=== PATIENT | female | born 1975 | race Caucasian/White ===

== ENCOUNTER 2020-07-20 10:20 | Emergency (ER) | payer OTHER ==
[~2020-07-20] VITALS: Ht 160 cm; Wt 122.5 kg
[2020-07-20 11:04] LABS: Basophils # (auto) 0 10 ^3/uL (0-0.2); Basophils % (auto) 0.5 % (0.0-2.0); Eosinophils # (auto) 0.1 10 ^3/uL (0-0.8); Eosinophils % (auto) 1.9 % (0.0-7.0); Monocytes # (auto) 0.6 10 ^3/uL (0-1.3); Neutrophils # (auto) 4.4 10 ^3/uL (1.6-8.6); White Blood Cell 6.2 10^3/uL (4.4-10.8)
[2020-07-20 11:06] LABS: Hemoglobin 9.4 g/dL (12.2-16.2); Lymphocytes % (auto) 16.4 % (10.0-50.0); Mean Corpuscular Hemoglobin 23.5 pg (28.0-32.0); Mean Corpuscular Hgb Conc. 30.4 g/dL (32.0-36.0); Mean Corpuscular Volume 77.2 fL (80.0-100.0); Monocytes % (auto) 9.7 % (0.0-12.0); Neutrophils % (auto) 71.5 % (37.0-80.0); Nucleated Red Blood Cells % 0.1 %; Platelet Count (auto) 269 10^3/uL (140-450); Red Blood Cells 4.02 10^6/uL (4.0-5.20); Red Cell Distribution Width 18.5 % (11.8-14.3)
[2020-07-20 11:27] LABS: Urine Bacteria NONE SEEN /hpf (None Seen); Urine Blood Negative /uL (Negative); Urine Mucus FEW (None Seen); Urine Specific Gravity 1.031 (1.001-1.035); Urine WBC 7 /hpf (0 - 5)
[2020-07-20 11:27] LABS: Albumin 3.7 g/dL (3.4-5.0); Calcium 8.4 mg/dL (8.5-10.1); Potassium 3.7 mmol/L (3.5-5.1)
[2020-07-20 11:30] LABS: BUN/Creatinine Ratio 12.3; Bilirubin, Total 0.5 mg/dL (0.2-1.0); Total Protein 7.6 g/dL (6.4-8.2)
[2020-07-20 13:50] VITALS: BP 146/69
== END 2020-07-20 13:53 | disposition home or self-care (01) ==
LOC: ER 10:20
DX: N39.0 Urinary tract infection, site not specified (principal)
CPT/HCPCS: 36415; 74176; 80053; 81001; 83690; 85025; 93005

== ENCOUNTER 2021-04-13 14:09 | Inpatient (IN) | payer OTHER ==
[~2021-04-13] VITALS: Ht 160 cm; Wt 126.0 kg
[2021-04-13] MEDS ORDERED: AZITHROMYCIN 500MG/ 250ML 250 ML IV ONE (14:30)
[2021-04-13] MEDS ORDERED: methylPREDNISolone SOD SUCC 125 MG/2 ML VL IV ONE (14:30)
[2021-04-13] MEDS ORDERED: ZINC SULFATE 220mg CAP or TAB PO ONE (14:30)
[2021-04-13] MEDS ORDERED: CHOLECALCIFEROL (VITD3) 2,000 UNIT CAP/TAB PO ONE (14:30)
[2021-04-13] MEDS ORDERED: ASCORBIC ACID 500 MG TAB PO ONE (14:30)
[2021-04-13 14:39] LABS: Basophils # (auto) 0 10 ^3/uL (0-0.2); Eosinophils # (auto) 0 10 ^3/uL (0-0.8); Lymphocytes # (auto) 0.6 10 ^3/uL (0.4-5.4); Monocytes # (auto) 0.2 10 ^3/uL (0-1.3); Neutrophils # (auto) 3.7 10 ^3/uL (1.6-8.6); Nucleated Red Blood Cells % 0.1 %; White Blood Cell 4.5 10^3/uL (4.4-10.8)
[2021-04-13 14:40] LABS: Basophils % (auto) 0.7 % (0.0-2.0); Eosinophils % (auto) 0.1 % (0.0-7.0); Hematocrit 26.5 % (36.0-46.0); Hemoglobin 8.7 g/dL (12.2-16.2); Mean Corpuscular Hemoglobin 22.5 pg (28.0-32.0); Mean Corpuscular Hgb Conc. 32.9 g/dL (32.0-36.0); Mean Corpuscular Volume 68.4 fL (80.0-100.0); Monocytes % (auto) 3.7 % (0.0-12.0); Neutrophils % (auto) 81.5 % (37.0-80.0); Red Blood Cells 3.87 10^6/uL (4.0-5.20); Red Cell Distribution Width 18.5 % (11.8-14.3)
[2021-04-13 15:01] LABS: Albumin 2.6 g/dL (3.4-5.0); Anion Gap 6 (5-15); Calcium 7.6 mg/dL (8.5-10.1); Carbon Dioxide 26 mmol/L (21-32); Chloride 104 mmol/L (98-107); Glucose 97 mg/dL (74-106); Potassium 3.5 mmol/L (3.5-5.1); Sodium 136 mmol/L (136-145)
[2021-04-13 15:07] LABS: Alanine Aminotransferase 39 U/L (13-56); Alkaline Phosphatase 206 U/L (45-117); Aspartate Aminotransferase 51 U/L (15-37); Bilirubin, Total 0.3 mg/dL (0.2-1.0); GFR African American 154 mL/min; GFR Non-African American 127 mL/min
[2021-04-13 16:04] LABS: BUN/Creatinine Ratio 9.1; Blood Urea Nitrogen 5 mg/dL (7-18)
[2021-04-13] MEDS ORDERED: ALUM & MAG HYDROX-SIMETH LIQ(MAALOX) 30 ML PO ONE (16:15)
[2021-04-13 17:24] LABS: Urine Bacteria FEW /hpf (None Seen); Urine Blood Negative /uL (Negative); Urine Specific Gravity 1.009 (1.001-1.035); Urine WBC 1 /hpf (0 - 5)
[2021-04-13] MEDS ORDERED: NITROGLYCERIN 0.4 MG SL TAB SL PRN (19:15)
[2021-04-13] MEDS ORDERED: MORPHINE SULFATE INJECTION 2 MG/ML SYRG IV PRN ×2 (19:15)
[2021-04-13] MEDS ORDERED: REMDESIVIR PER PHARMACY 0 ML IV SCH (19:15)
[2021-04-13 19:38] VITALS: BP 106/64
[2021-04-13] MEDS ORDERED: FUROSEMIDE 20 MG/2 ML VIAL IV ONE (19:45)
[2021-04-13] MEDS: cefTRIAXone 1GM/50ML D5W 50 ML IV SCH (21:14)
[2021-04-13] MEDS: ENOXAPARIN SOD 40 MG/0.4 ML SYRINGE SC SCH (21:15)
[2021-04-13] MEDS: ACETAMINOPHEN 500 MG TAB PO PRN (21:15)
[2021-04-13] MEDS: BUDESONIDE (INHALATION) 180 MCG IH IN SCH (22:00)
[2021-04-13] MEDS ORDERED: TOCILIZUMAB 400 MG in SODIUM CHL 0.9% 80 ML IV ONE (22:00)
[2021-04-13] MEDS: ALBUTEROL SULF HFA 90MCG INH 200DOSE IN PRN (22:33)
[2021-04-13] MEDS ORDERED: REMDESIVIR 200 MG in NS 210ml LOADING DOSE ADULT IV ONE (23:00)
[2021-04-14] MEDS: ZOLPIDEM TARTRATE 5 MG TAB PO PRN (00:07)
[2021-04-14 05:49] LABS: Basophils # (auto) 0 10 ^3/uL (0-0.2); Eosinophils # (auto) 0 10 ^3/uL (0-0.8); Hemoglobin 8.9 g/dL (12.2-16.2); Lymphocytes # (auto) 0.4 10 ^3/uL (0.4-5.4); Monocytes # (auto) 0.1 10 ^3/uL (0-1.3); Nucleated Red Blood Cells % 0.1 %; White Blood Cell 3.6 10^3/uL (4.4-10.8)
[2021-04-14 05:52] LABS: Basophils % (auto) 0.3 % (0.0-2.0); Hematocrit 27.7 % (36.0-46.0); Lymphocytes % (auto) 11.2 % (10.0-50.0); Mean Corpuscular Hgb Conc. 32.2 g/dL (32.0-36.0); Mean Corpuscular Volume 68.2 fL (80.0-100.0); Monocytes % (auto) 3.6 % (0.0-12.0); Neutrophils % (auto) 84.9 % (37.0-80.0); Red Blood Cells 4.05 10^6/uL (4.0-5.20); Red Cell Distribution Width 18.7 % (11.8-14.3)
[2021-04-14 06:09] LABS: Albumin 2.7 g/dL (3.4-5.0); Calcium 7.7 mg/dL (8.5-10.1); Potassium 3.9 mmol/L (3.5-5.1)
[2021-04-14 06:13] LABS: BUN/Creatinine Ratio 8.6; Bilirubin, Total 0.2 mg/dL (0.2-1.0); Total Protein 7.6 g/dL (6.4-8.2)
[2021-04-14] MEDS: BUDESONIDE (INHALATION) 180 MCG IH IN SCH ×2 (07:02→19:05)
[2021-04-14] MEDS: ALBUTEROL SULF HFA 90MCG INH 200DOSE IN PRN ×2 (07:02→19:05)
[2021-04-14] MEDS: PANTOPRAZOLE 40 MG TAB PO SCH (10:00)
[2021-04-14] MEDS: ZINC SULFATE 220mg CAP or TAB PO SCH (10:00)
[2021-04-14] MEDS ORDERED: TOCILIZUMAB 400 MG in SODIUM CHL 0.9% 80 ML IV ONE (10:00)
[2021-04-14] MEDS: DexAMETHasone SOD PHOS 10MG/1ML VIAL INJ IV SCH (10:00)
[2021-04-14] MEDS: CHOLECALCIFEROL (VITD3) 2,000 UNIT CAP/TAB PO SCH (10:01)
[2021-04-14] MEDS: ASCORBIC ACID 1,000 MG TAB PO SCH (10:01)
[2021-04-14] MEDS: IVERMECTIN 3 MG TAB PO SCH (10:01)
[2021-04-14] MEDS: ENOXAPARIN SOD 40 MG/0.4 ML SYRINGE SC SCH ×2 (10:02→22:50)
[2021-04-14] MEDS: ONDANSETRON HCL 4 MG/2 ML VIAL IV PRN ×2 (10:03→21:00)
[2021-04-14] MEDS: ACETAMINOPHEN 500 MG TAB PO PRN (10:03)
[2021-04-14 13:03] LABS: % Iron Saturation 4.6 % (15-50)
[2021-04-14] MEDS: REMDESIVIR 100mg 100 MG in SODIUM CHL 0.9% 230 ML IV SCH (16:21)
[2021-04-14] MEDS: FERROUS SULFATE 325mg EC TAB PO SCH (18:24)
[2021-04-14] MEDS: cefTRIAXone 1GM/50ML D5W 50 ML IV SCH (21:30)
[2021-04-14] MEDS ORDERED: AZITHROMYCIN 500MG/ 250ML 250 ML IV SCH (22:00)
[2021-04-15] MEDS: ZOLPIDEM TARTRATE 5 MG TAB PO PRN ×2 (00:35→22:32)
[2021-04-15] MEDS: LORazepam 2MG/ML-1ML VIAL IV PRN ×2 (02:26→12:37)
[2021-04-15] MEDS: BUDESONIDE (INHALATION) 180 MCG IH IN SCH ×2 (06:20→22:00)
[2021-04-15] MEDS: FERROUS SULFATE 325mg EC TAB PO SCH ×3 (07:46→18:20)
[2021-04-15] MEDS: DexAMETHasone SOD PHOS 10MG/1ML VIAL INJ IV SCH (08:13)
[2021-04-15] MEDS: ZINC SULFATE 220mg CAP or TAB PO SCH (08:13)
[2021-04-15] MEDS: POTASSIUM CHL 20 Meq TABLET PO SCH (08:13)
[2021-04-15] MEDS: PANTOPRAZOLE 40 MG TAB PO SCH (08:14)
[2021-04-15] MEDS: ASCORBIC ACID 1,000 MG TAB PO SCH (08:15)
[2021-04-15] MEDS: CHOLECALCIFEROL (VITD3) 2,000 UNIT CAP/TAB PO SCH (08:15)
[2021-04-15] MEDS: IVERMECTIN 3 MG TAB PO SCH (08:15)
[2021-04-15] MEDS: ENOXAPARIN SOD 40 MG/0.4 ML SYRINGE SC SCH ×2 (08:16→22:32)
[2021-04-15] MEDS: FUROSEMIDE 40 MG TAB PO SCH (08:17)
[2021-04-15] MEDS: REMDESIVIR 100mg 100 MG in SODIUM CHL 0.9% 230 ML IV SCH (15:17)
[2021-04-15] MEDS: ONDANSETRON HCL 4 MG/2 ML VIAL IV PRN (17:10)
[2021-04-15] MEDS: cefTRIAXone 1GM/50ML D5W 50 ML IV SCH ×2 (20:53→21:30)
[2021-04-15] MEDS: AZITHROMYCIN 250 MG TAB PO SCH (22:32)
[2021-04-16 05:30] LABS: Basophils # (auto) 0 10 ^3/uL (0-0.2); Eosinophils # (auto) 0 10 ^3/uL (0-0.8); Lymphocytes # (auto) 0.7 10 ^3/uL (0.4-5.4); Monocytes # (auto) 0.5 10 ^3/uL (0-1.3); Red Blood Cells 4.03 10^6/uL (4.0-5.20)
[2021-04-16 05:32] LABS: Basophils % (auto) 0.1 % (0.0-2.0); Hematocrit 27.8 % (36.0-46.0); Hemoglobin 8.7 g/dL (12.2-16.2); Lymphocytes % (auto) 8.7 % (10.0-50.0); Mean Corpuscular Hemoglobin 21.7 pg (28.0-32.0); Mean Corpuscular Hgb Conc. 31.4 g/dL (32.0-36.0); Monocytes % (auto) 5.7 % (0.0-12.0); Neutrophils # (auto) 7.3 10 ^3/uL (1.6-8.6); Neutrophils % (auto) 85.5 % (37.0-80.0); Nucleated Red Blood Cells % 0.3 %; Red Cell Distribution Width 18.4 % (11.8-14.3); White Blood Cell 8.5 10^3/uL (4.4-10.8)
[2021-04-16 06:02] LABS: BUN/Creatinine Ratio 22.4; Calcium 7.4 mg/dL (8.5-10.1); Potassium 3.6 mmol/L (3.5-5.1)
[2021-04-16] MEDS: BUDESONIDE (INHALATION) 180 MCG IH IN SCH ×2 (07:43→19:43)
[2021-04-16] MEDS: FERROUS SULFATE 325mg EC TAB PO SCH ×3 (07:53→18:50)
[2021-04-16] MEDS: DexAMETHasone SOD PHOS 10MG/1ML VIAL INJ IV SCH (11:12)
[2021-04-16] MEDS: ZINC SULFATE 220mg CAP or TAB PO SCH (11:12)
[2021-04-16] MEDS: POTASSIUM CHL 20 Meq TABLET PO SCH (11:13)
[2021-04-16] MEDS: FUROSEMIDE 40 MG TAB PO SCH (11:16)
[2021-04-16] MEDS: PANTOPRAZOLE 40 MG TAB PO SCH (11:17)
[2021-04-16] MEDS: CHOLECALCIFEROL (VITD3) 2,000 UNIT CAP/TAB PO SCH (11:17)
[2021-04-16] MEDS: ASCORBIC ACID 1,000 MG TAB PO SCH (11:17)
[2021-04-16] MEDS: ENOXAPARIN SOD 40 MG/0.4 ML SYRINGE SC SCH ×2 (11:17→21:45)
[2021-04-16] MEDS ORDERED: LOPERAMIDE HCL 2 MG CAP PO ONE (13:45)
[2021-04-16] MEDS: REMDESIVIR 100mg 100 MG in SODIUM CHL 0.9% 230 ML IV SCH (14:43)
[2021-04-16] MEDS ORDERED: FUROSEMIDE 20 MG/2 ML VIAL IV ONE (15:30)
[2021-04-16 15:35] VITALS: BP 94/58
[2021-04-16 15:52] VITALS: BP 94/58
[2021-04-16] MEDS: ALBUTEROL SULF HFA 90MCG INH 200DOSE IN PRN (19:44)
[2021-04-16] MEDS: ZOLPIDEM TARTRATE 5 MG TAB PO PRN (21:45)
[2021-04-16] MEDS: AZITHROMYCIN 250 MG TAB PO SCH (21:45)
[2021-04-17] MEDS: LORazepam 2MG/ML-1ML VIAL IV PRN (00:33)
[2021-04-17 05:00] LABS: Potassium 3.6 mmol/L (3.5-5.1)
[2021-04-17 05:11] LABS: Albumin 2.7 g/dL (3.4-5.0); BUN/Creatinine Ratio 22.4; Bilirubin, Total 0.4 mg/dL (0.2-1.0); Calcium 7.6 mg/dL (8.5-10.1); Total Protein 7.2 g/dL (6.4-8.2)
[2021-04-17] MEDS: DexAMETHasone SOD PHOS 10MG/1ML VIAL INJ IV SCH (08:41)
[2021-04-17] MEDS: FERROUS SULFATE 325mg EC TAB PO SCH ×3 (08:41→18:32)
[2021-04-17] MEDS: FUROSEMIDE 20 MG/2 ML VIAL IV SCH (08:41)
[2021-04-17] MEDS: ASCORBIC ACID 1,000 MG TAB PO SCH (08:44)
[2021-04-17] MEDS: ZINC SULFATE 220mg CAP or TAB PO SCH (08:44)
[2021-04-17] MEDS: CHOLECALCIFEROL (VITD3) 2,000 UNIT CAP/TAB PO SCH (08:44)
[2021-04-17] MEDS: POTASSIUM CHL 20 Meq TABLET PO SCH (08:44)
[2021-04-17] MEDS: ENOXAPARIN SOD 40 MG/0.4 ML SYRINGE SC SCH ×2 (08:44→22:07)
[2021-04-17] MEDS: PANTOPRAZOLE 40 MG TAB PO SCH (08:44)
[2021-04-17] MEDS: BUDESONIDE (INHALATION) 180 MCG IH IN SCH ×2 (11:28→19:37)
[2021-04-17] MEDS ORDERED: HYDROcodone-ACET 5/325MG TAB PO ONE (12:45)
[2021-04-17] MEDS: REMDESIVIR 100mg 100 MG in SODIUM CHL 0.9% 230 ML IV SCH (16:03)
[2021-04-17] MEDS: cefTRIAXone 1GM/50ML D5W 50 ML IV SCH (21:18)
[2021-04-17] MEDS: AZITHROMYCIN 250 MG TAB PO SCH (22:08)
[2021-04-18] VITALS (15 sets, daily range): BP systolic 98–134; BP diastolic 59–95
[2021-04-18] MEDS: ALBUTEROL SULF HFA 90MCG INH 200DOSE IN PRN (06:35)
[2021-04-18] MEDS: BUDESONIDE (INHALATION) 180 MCG IH IN SCH ×2 (06:35→22:00)
[2021-04-18] MEDS: FERROUS SULFATE 325mg EC TAB PO SCH (08:00)
[2021-04-18 08:56] LABS: Red Blood Cells 4.56 10^6/uL (4.0-5.20); White Blood Cell 10.1 10^3/uL (4.4-10.8)
[2021-04-18 08:57] LABS: Hematocrit 31.6 % (36.0-46.0); Hemoglobin 10.1 g/dL (12.2-16.2); Mean Corpuscular Hemoglobin 22.1 pg (28.0-32.0); Mean Corpuscular Hgb Conc. 31.9 g/dL (32.0-36.0); Mean Corpuscular Volume 69.3 fL (80.0-100.0); Red Cell Distribution Width 18.3 % (11.8-14.3)
[2021-04-18 09:01] LABS: Band Neutrophils % (manual) 0; Basophils % (manual) 0 (0.0-2.0); Blast Cells 0; Eosinophils % (manual) 0 (0-7); Metamyelocytes % 0; Myelocytes % 0; Promyelocytes % 0; Reactive Lymphocytes 0
[2021-04-18 09:16] LABS: BUN/Creatinine Ratio 25.3; Calcium 8.1 mg/dL (8.5-10.1); Potassium 3.8 mmol/L (3.5-5.1)
[2021-04-18 09:33] LABS: Lymphocytes % (manual) 22 (10.0-50.0); Monocytes % (manual) 7 (0-12)
[2021-04-18] MEDS ORDERED: ALPRAZolam 0.25 MG TAB PO ONE (10:15)
[2021-04-18] MEDS ORDERED: ETOMIDATE (2MG/ML) 20ML VIAL IV ONE ×2 (11:15→11:20)
[2021-04-18] MEDS ORDERED: ROCURONIUM 10MG/ML 10ML VIAL IV ONE ×2 (11:15→11:20)
[2021-04-18] MEDS ORDERED: NOREPINEPHRINE 8 MG/250ML KIT 250 ML IV SCH (11:15)
[2021-04-18] MEDS ORDERED: fentaNYL Drip 2500mCg/250mlNS 250 ML IV SCH (11:15)
[2021-04-18] MEDS ORDERED: PROPOFOL 100 ML IV ONE (11:20)
[2021-04-18] MEDS: MIDAZOLAM DRIP 50 mg/50mL 50 ML IV SCH ×2 (11:35→14:06)
[2021-04-18] MEDS: PROPOFOL 100 ML IV SCH ×2 (12:15→15:00)
[2021-04-18] MEDS: DexAMETHasone SOD PHOS 10MG/1ML VIAL INJ IV SCH (12:53)
[2021-04-18] MEDS: ZINC SULFATE 220mg CAP or TAB PO SCH (12:53)
[2021-04-18] MEDS: FUROSEMIDE 20 MG/2 ML VIAL IV SCH (12:53)
[2021-04-18] MEDS: ENOXAPARIN SOD 40 MG/0.4 ML SYRINGE SC SCH (12:54)
[2021-04-18] MEDS: ASCORBIC ACID 1,000 MG TAB PO SCH (12:54)
[2021-04-18] MEDS: CHOLECALCIFEROL (VITD3) 2,000 UNIT CAP/TAB PO SCH (12:54)
[2021-04-18] MEDS: PANTOPRAZOLE 40 MG TAB PO SCH (13:45)
[2021-04-18] MEDS ORDERED: FERROUS SULFATE 300 MG/5 ML ORAL LIQ NG SCH (14:00)
[2021-04-18] MEDS: POTASSIUM CHL 20 Meq TABLET PO SCH (14:05)
[2021-04-18] MEDS ORDERED: ACETAMINOPHEN 500 MG TAB PO PRN (22:00)
[2021-04-18] MEDS: AZITHROMYCIN 250 MG TAB PO SCH (22:00)
[2021-04-18] MEDS ORDERED: fentaNYL Drip 2500mCg/250mlNS 250 ML IV ONE (22:01)
[2021-04-18] MEDS: cefTRIAXone 1GM/50ML D5W 50 ML IV SCH (22:29)
[2021-04-18] MEDS ORDERED: AZITHROMYCIN 250 MG TAB PO ONE (22:45)
[2021-04-18] MEDS: NOREPINEPHRINE 8 MG/250ML KIT 250 ML IV SCH (22:45)
[2021-04-19] VITALS (107 sets, daily range): BP systolic 76–130; BP diastolic 46–93
[2021-04-19] MEDS: FERROUS SULFATE 300 MG/5 ML ORAL LIQ NG SCH ×4 (00:18→21:14)
[2021-04-19] MEDS: PROPOFOL 100 ML IV SCH ×4 (00:19→23:15)
[2021-04-19] MEDS: MIDAZOLAM DRIP 50 mg/50mL 50 ML IV SCH ×4 (00:20→16:00)
[2021-04-19] MEDS: fentaNYL Drip 2500mCg/250mlNS 250 ML IV SCH ×3 (00:23→23:15)
[2021-04-19] MEDS ORDERED: SPACMIS (01:57)
[2021-04-19] MEDS ORDERED: ALBU108A5 INH (01:57)
[2021-04-19] MEDS ORDERED: PANT40T PO (01:57)
[2021-04-19] MEDS ORDERED: BENZ100C97 PO (01:57)
[2021-04-19 05:03] LABS: Hemoglobin 10.3 g/dL (12.2-16.2); Mean Corpuscular Hemoglobin 21.6 pg (28.0-32.0); Mean Corpuscular Hgb Conc. 31.3 g/dL (32.0-36.0); Red Blood Cells 4.76 10^6/uL (4.0-5.20)
[2021-04-19 05:06] LABS: Hematocrit 32.8 % (36.0-46.0); Red Cell Distribution Width 18.4 % (11.8-14.3)
[2021-04-19 05:10] LABS: Basophils % (manual) 0 (0.0-2.0); Blast Cells 0; Eosinophils % (manual) 0 (0-7); Promyelocytes % 0; Reactive Lymphocytes 0
[2021-04-19 05:20] LABS: BUN/Creatinine Ratio 23.7; Potassium 3.9 mmol/L (3.5-5.1)
[2021-04-19] MEDS ORDERED: FERROUS SULFATE 325mg EC TAB PO SCH (06:00)
[2021-04-19] MEDS: ALBUTEROL SULF 2.5 MG/0.5ML(0.5%) NEB SOLN NEB SCH ×2 (06:00→19:01)
[2021-04-19] MEDS: Jevity 1.2 Cal/Fiber 1 Liter GT SCH (06:59)
[2021-04-19 07:01] LABS: Band Neutrophils % (manual) 8; Lymphocytes % (manual) 4 (10.0-50.0); Metamyelocytes % 1; Monocytes % (manual) 11 (0-12); Myelocytes % 1
[2021-04-19] MEDS: cefTRIAXone 1GM/50ML D5W 50 ML IV SCH (09:15)
[2021-04-19] MEDS: BUDESONIDE (INHALATION) 0.5 MG/2 ML NEB NEB SCH ×2 (10:00→19:01)
[2021-04-19] MEDS: DexAMETHasone SOD PHOS 10MG/1ML VIAL INJ IV SCH (10:24)
[2021-04-19] MEDS: ZINC SULFATE 220mg CAP or TAB PO SCH (10:25)
[2021-04-19] MEDS: ASCORBIC ACID 1,000 MG TAB PO SCH (10:25)
[2021-04-19] MEDS: CHOLECALCIFEROL (VITD3) 2,000 UNIT CAP/TAB PO SCH (10:25)
[2021-04-19] MEDS: ENOXAPARIN SOD 40 MG/0.4 ML SYRINGE SC SCH ×2 (10:25→21:14)
[2021-04-19] MEDS: PANTOPRAZOLE 40 MG TAB PO SCH (10:25)
[2021-04-19] MEDS: FUROSEMIDE 20 MG/2 ML VIAL IV SCH (10:26)
[2021-04-19] MEDS: NOREPINEPHRINE 8 MG/250ML KIT 250 ML IV SCH (22:45)
[2021-04-20] VITALS (100 sets, daily range): BP systolic 86–142; BP diastolic 52–94
[2021-04-20] MEDS: ALBUTEROL SULF 2.5 MG/0.5ML(0.5%) NEB SOLN NEB SCH ×3 (06:17→19:14)
[2021-04-20 08:14] LABS: Anion Gap 10 (5-15); BUN/Creatinine Ratio 20.9; Blood Urea Nitrogen 14 mg/dL (7-18); Calcium 7.4 mg/dL (8.5-10.1); Carbon Dioxide 23 mmol/L (21-32); Chloride 106 mmol/L (98-107); GFR African American 122 mL/min; GFR Non-African American 101 mL/min; Glucose 113 mg/dL (74-106); Potassium 4.4 mmol/L (3.5-5.1); Sodium 139 mmol/L (136-145)
[2021-04-20] MEDS: FERROUS SULFATE 300 MG/5 ML ORAL LIQ NG SCH ×3 (08:23→22:18)
[2021-04-20] MEDS: cefTRIAXone 1GM/50ML D5W 50 ML IV SCH (09:24)
[2021-04-20] MEDS: DexAMETHasone SOD PHOS 10MG/1ML VIAL INJ IV SCH (09:24)
[2021-04-20] MEDS: ZINC SULFATE 220mg CAP or TAB PO SCH (09:25)
[2021-04-20] MEDS: FUROSEMIDE 20 MG/2 ML VIAL IV SCH (09:25)
[2021-04-20] MEDS: PANTOPRAZOLE 40 MG/10 ML VIAL INJ IV SCH (09:25)
[2021-04-20] MEDS: CHOLECALCIFEROL (VITD3) 2,000 UNIT CAP/TAB PO SCH (09:26)
[2021-04-20] MEDS: ASCORBIC ACID 1,000 MG TAB PO SCH (09:26)
[2021-04-20] MEDS: ENOXAPARIN SOD 40 MG/0.4 ML SYRINGE SC SCH ×2 (09:31→22:18)
[2021-04-20 09:36] LABS: Hemoglobin 9.9 g/dL (12.2-16.2)
[2021-04-20 09:38] LABS: Hematocrit 30.8 % (36.0-46.0); Mean Corpuscular Hemoglobin 22.2 pg (28.0-32.0); Mean Corpuscular Hgb Conc. 32.2 g/dL (32.0-36.0); Mean Corpuscular Volume 68.8 fL (80.0-100.0); Red Blood Cells 4.47 10^6/uL (4.0-5.20)
[2021-04-20 09:42] LABS: Band Neutrophils % (manual) 0; Basophils % (manual) 0 (0.0-2.0); Blast Cells 0; Eosinophils % (manual) 0 (0-7); Myelocytes % 0; Promyelocytes % 0; Reactive Lymphocytes 0
[2021-04-20] MEDS: BUDESONIDE (INHALATION) 0.5 MG/2 ML NEB NEB SCH ×2 (10:00→19:14)
[2021-04-20 10:45] LABS: Lymphocytes % (manual) 17 (10.0-50.0); Metamyelocytes % 1; Monocytes % (manual) 7 (0-12)
[2021-04-20] MEDS: MIDAZOLAM DRIP 50 mg/50mL 50 ML IV SCH ×2 (13:41→22:21)
[2021-04-20] MEDS: PROPOFOL 100 ML IV SCH ×2 (13:42→22:20)
[2021-04-20] MEDS: fentaNYL Drip 2500mCg/250mlNS 250 ML IV SCH (17:40)
[2021-04-21] VITALS (101 sets, daily range): BP systolic 89–125; BP diastolic 50–79
[2021-04-21] MEDS: NOREPINEPHRINE 8 MG/250ML KIT 250 ML IV SCH ×2 (01:11→22:45)
[2021-04-21 04:41] LABS: Hemoglobin 9.8 g/dL (12.2-16.2); Mean Corpuscular Volume 71.2 fL (80.0-100.0)
[2021-04-21 04:43] LABS: Hematocrit 31.6 % (36.0-46.0); Mean Corpuscular Hgb Conc. 30.9 g/dL (32.0-36.0); Red Blood Cells 4.45 10^6/uL (4.0-5.20); Red Cell Distribution Width 19.1 % (11.8-14.3); White Blood Cell 21.9 10^3/uL (4.4-10.8)
[2021-04-21 04:52] LABS: Basophils % (manual) 0 (0.0-2.0); Blast Cells 0; Eosinophils % (manual) 0 (0-7); Metamyelocytes % 0; Myelocytes % 0; Promyelocytes % 0; Reactive Lymphocytes 0
[2021-04-21 05:18] LABS: BUN/Creatinine Ratio 23.8
[2021-04-21] MEDS: FERROUS SULFATE 300 MG/5 ML ORAL LIQ NG SCH ×3 (06:39→21:35)
[2021-04-21 06:43] LABS: Band Neutrophils % (manual) 12; Lymphocytes % (manual) 5 (10.0-50.0); Monocytes % (manual) 4 (0-12)
[2021-04-21] MEDS: fentaNYL Drip 2500mCg/250mlNS 250 ML IV SCH ×2 (07:00→18:47)
[2021-04-21] MEDS: PROPOFOL 100 ML IV SCH ×2 (07:01→15:38)
[2021-04-21] MEDS: MIDAZOLAM DRIP 50 mg/50mL 50 ML IV SCH ×2 (09:02→15:39)
[2021-04-21] MEDS: cefTRIAXone 1GM/50ML D5W 50 ML IV SCH (09:02)
[2021-04-21] MEDS: DexAMETHasone SOD PHOS 10MG/1ML VIAL INJ IV SCH (10:30)
[2021-04-21] MEDS: ZINC SULFATE 220mg CAP or TAB PO SCH (10:31)
[2021-04-21] MEDS: ASCORBIC ACID 1,000 MG TAB PO SCH (10:31)
[2021-04-21] MEDS: PANTOPRAZOLE 40 MG/10 ML VIAL INJ IV SCH (10:31)
[2021-04-21] MEDS: FUROSEMIDE 20 MG/2 ML VIAL IV SCH (10:31)
[2021-04-21] MEDS: ENOXAPARIN SOD 40 MG/0.4 ML SYRINGE SC SCH (10:32)
[2021-04-21] MEDS: CHOLECALCIFEROL (VITD3) 2,000 UNIT CAP/TAB PO SCH (10:32)
[2021-04-21] MEDS: ALBUTEROL SULF 2.5 MG/0.5ML(0.5%) NEB SOLN NEB SCH ×3 (13:52→23:50)
[2021-04-21] MEDS: BUDESONIDE (INHALATION) 0.5 MG/2 ML NEB NEB SCH ×2 (13:52→23:50)
[2021-04-21] MEDS: PIPERACILLIN-TAZOB 3.375GM 100 ML IV SCH ×2 (14:32→21:33)
[2021-04-21 14:40] LABS: Urine Bacteria FEW /hpf (None Seen); Urine Blood Negative /uL (Negative); Urine Hyaline Cast FEW /lpf (0 - 2); Urine Mucus FEW (None Seen); Urine WBC 2 /hpf (0 - 5)
[2021-04-21] MEDS: ENOXAPARIN SOD 60 MG/0.6 ML SYRINGE SC SCH (21:35)
[2021-04-22] VITALS (102 sets, daily range): BP systolic 91–129; BP diastolic 20–78
[2021-04-22] MEDS: MIDAZOLAM DRIP 50 mg/50mL 50 ML IV SCH ×4 (01:48→21:09)
[2021-04-22] MEDS: PROPOFOL 100 ML IV SCH ×4 (01:51→21:09)
[2021-04-22] MEDS: FERROUS SULFATE 300 MG/5 ML ORAL LIQ NG SCH ×3 (06:14→21:08)
[2021-04-22] MEDS: PIPERACILLIN-TAZOB 3.375GM 100 ML IV SCH ×3 (06:15→21:07)
[2021-04-22] MEDS: ALBUTEROL SULF 2.5 MG/0.5ML(0.5%) NEB SOLN NEB SCH ×3 (06:25→22:24)
[2021-04-22] MEDS: BUDESONIDE (INHALATION) 0.5 MG/2 ML NEB NEB SCH ×2 (06:26→22:24)
[2021-04-22 06:36] LABS: Basophils % (auto) 0.3 % (0.0-2.0); Calcium 8.1 mg/dL (8.5-10.1); Hemoglobin 9.1 g/dL (12.2-16.2); Monocytes # (auto) 0.6 10 ^3/uL (0-1.3); Nucleated Red Blood Cells % 0.6 %; Potassium 3.7 mmol/L (3.5-5.1)
[2021-04-22 06:39] LABS: BUN/Creatinine Ratio 22.4
[2021-04-22 06:44] LABS: Basophils # (auto) 0.1 10 ^3/uL (0-0.2); Eosinophils # (auto) 0.4 10 ^3/uL (0-0.8); Eosinophils % (auto) 2.8 % (0.0-7.0); Hematocrit 29.1 % (36.0-46.0); Lymphocytes % (auto) 6.2 % (10.0-50.0); Mean Corpuscular Hemoglobin 22.4 pg (28.0-32.0); Mean Corpuscular Hgb Conc. 31.2 g/dL (32.0-36.0); Mean Corpuscular Volume 71.7 fL (80.0-100.0); Monocytes % (auto) 3.8 % (0.0-12.0); Neutrophils # (auto) 13.8 10 ^3/uL (1.6-8.6); Neutrophils % (auto) 86.9 % (37.0-80.0); Red Blood Cells 4.06 10^6/uL (4.0-5.20); Red Cell Distribution Width 18.5 % (11.8-14.3); White Blood Cell 15.8 10^3/uL (4.4-10.8)
[2021-04-22] MEDS: DexAMETHasone SOD PHOS 10MG/1ML VIAL INJ IV SCH (10:07)
[2021-04-22] MEDS: FUROSEMIDE 20 MG/2 ML VIAL IV SCH (10:11)
[2021-04-22] MEDS: CHOLECALCIFEROL (VITD3) 2,000 UNIT CAP/TAB PO SCH (10:15)
[2021-04-22] MEDS: ZINC SULFATE 220mg CAP or TAB PO SCH (10:15)
[2021-04-22] MEDS: ASCORBIC ACID 1,000 MG TAB PO SCH (10:15)
[2021-04-22] MEDS: PANTOPRAZOLE 40 MG/10 ML VIAL INJ IV SCH ×2 (10:15→21:07)
[2021-04-22] MEDS: ENOXAPARIN SOD 60 MG/0.6 ML SYRINGE SC SCH (10:16)
[2021-04-22] MEDS: SUCRALFATE 1 GM/10 ML ORAL SUSP GT SCH ×3 (12:00→21:07)
[2021-04-22] MEDS: fentaNYL Drip 2500mCg/250mlNS 250 ML IV SCH ×2 (18:03→21:08)
[2021-04-22] MEDS: NOREPINEPHRINE 8 MG/250ML KIT 250 ML IV SCH (22:45)
[2021-04-23] VITALS (102 sets, daily range): BP systolic 88–136; BP diastolic 42–86
[2021-04-23] MEDS: PROPOFOL 100 ML IV SCH ×2 (01:50→21:14)
[2021-04-23] MEDS: MIDAZOLAM DRIP 50 mg/50mL 50 ML IV SCH ×3 (01:51→21:14)
[2021-04-23 05:10] LABS: Eosinophils # (auto) 0.2 10 ^3/uL (0-0.8); Mean Corpuscular Hemoglobin 22.5 pg (28.0-32.0)
[2021-04-23 05:12] LABS: Basophils # (auto) 0.1 10 ^3/uL (0-0.2); Basophils % (auto) 0.4 % (0.0-2.0); Eosinophils % (auto) 1.3 % (0.0-7.0); Hematocrit 27.9 % (36.0-46.0); Hemoglobin 8.6 g/dL (12.2-16.2); Lymphocytes # (auto) 0.8 10 ^3/uL (0.4-5.4); Lymphocytes % (auto) 5.3 % (10.0-50.0); Mean Corpuscular Volume 72.7 fL (80.0-100.0); Monocytes # (auto) 0.5 10 ^3/uL (0-1.3); Monocytes % (auto) 3.1 % (0.0-12.0); Neutrophils # (auto) 13.5 10 ^3/uL (1.6-8.6); Neutrophils % (auto) 89.9 % (37.0-80.0); Nucleated Red Blood Cells % 0.3 %; Red Blood Cells 3.83 10^6/uL (4.0-5.20)
[2021-04-23] MEDS: PIPERACILLIN-TAZOB 3.375GM 100 ML IV SCH ×3 (05:30→21:13)
[2021-04-23] MEDS: FERROUS SULFATE 300 MG/5 ML ORAL LIQ NG SCH ×4 (05:30→21:13)
[2021-04-23] MEDS: SUCRALFATE 1 GM/10 ML ORAL SUSP GT SCH ×4 (05:30→21:13)
[2021-04-23 05:33] LABS: Potassium 3.8 mmol/L (3.5-5.1)
[2021-04-23 05:42] LABS: Albumin 2.7 g/dL (3.4-5.0); BUN/Creatinine Ratio 20.3; Bilirubin, Total 0.3 mg/dL (0.2-1.0); Total Protein 6.4 g/dL (6.4-8.2)
[2021-04-23] MEDS: BUDESONIDE (INHALATION) 0.5 MG/2 ML NEB NEB SCH ×2 (06:57→22:17)
[2021-04-23] MEDS: ALBUTEROL SULF 2.5 MG/0.5ML(0.5%) NEB SOLN NEB SCH ×3 (06:57→22:17)
[2021-04-23] MEDS: PANTOPRAZOLE 40 MG/10 ML VIAL INJ IV SCH ×2 (13:00→21:13)
[2021-04-23] MEDS: ASCORBIC ACID 1,000 MG TAB PO SCH (13:00)
[2021-04-23] MEDS: FUROSEMIDE 20 MG/2 ML VIAL IV SCH (13:00)
[2021-04-23] MEDS: ZINC SULFATE 220mg CAP or TAB PO SCH (13:00)
[2021-04-23] MEDS: DexAMETHasone SOD PHOS 10MG/1ML VIAL INJ IV SCH (13:00)
[2021-04-23] MEDS: CHOLECALCIFEROL (VITD3) 2,000 UNIT CAP/TAB PO SCH (13:00)
[2021-04-23] MEDS: Jevity 1.2 Cal/Fiber 1 Liter GT SCH (17:00)
[2021-04-23] MEDS: NOREPINEPHRINE 8 MG/250ML KIT 250 ML IV SCH (22:45)
[2021-04-23] MEDS: fentaNYL Drip 2500mCg/250mlNS 250 ML IV SCH (23:01)
[2021-04-24] VITALS (106 sets, daily range): BP systolic 93–139; BP diastolic 51–85
[2021-04-24] MEDS: MIDAZOLAM DRIP 50 mg/50mL 50 ML IV SCH ×5 (01:18→21:29)
[2021-04-24] MEDS: PROPOFOL 100 ML IV SCH ×4 (01:57→17:59)
[2021-04-24 04:04] LABS: Eosinophils # (auto) 0.1 10 ^3/uL (0-0.8); Hematocrit 28.1 % (36.0-46.0); Monocytes # (auto) 0.5 10 ^3/uL (0-1.3); Neutrophils # (auto) 13.8 10 ^3/uL (1.6-8.6)
[2021-04-24 04:05] LABS: Basophils # (auto) 0 10 ^3/uL (0-0.2); Basophils % (auto) 0.3 % (0.0-2.0); Eosinophils % (auto) 0.6 % (0.0-7.0); Hemoglobin 8.8 g/dL (12.2-16.2); Lymphocytes # (auto) 0.7 10 ^3/uL (0.4-5.4); Lymphocytes % (auto) 4.6 % (10.0-50.0); Mean Corpuscular Hemoglobin 22.6 pg (28.0-32.0); Mean Corpuscular Hgb Conc. 31.2 g/dL (32.0-36.0); Mean Corpuscular Volume 72.5 fL (80.0-100.0); Monocytes % (auto) 3.4 % (0.0-12.0); Neutrophils % (auto) 91.1 % (37.0-80.0); Nucleated Red Blood Cells % 0.2 %; Red Blood Cells 3.88 10^6/uL (4.0-5.20); White Blood Cell 15.1 10^3/uL (4.4-10.8)
[2021-04-24 04:08] LABS: Red Cell Distribution Width 20.4 % (11.8-14.3)
[2021-04-24] MEDS: SUCRALFATE 1 GM/10 ML ORAL SUSP GT SCH ×4 (05:47→21:20)
[2021-04-24] MEDS: PIPERACILLIN-TAZOB 3.375GM 100 ML IV SCH (05:47)
[2021-04-24] MEDS: FERROUS SULFATE 300 MG/5 ML ORAL LIQ NG SCH ×3 (05:47→21:20)
[2021-04-24] MEDS: ALBUTEROL SULF 2.5 MG/0.5ML(0.5%) NEB SOLN NEB SCH ×3 (06:46→18:45)
[2021-04-24] MEDS: BUDESONIDE (INHALATION) 0.5 MG/2 ML NEB NEB SCH ×2 (06:46→18:45)
[2021-04-24] MEDS: PANTOPRAZOLE 40 MG/10 ML VIAL INJ IV SCH ×2 (09:23→21:20)
[2021-04-24] MEDS: FUROSEMIDE 20 MG/2 ML VIAL IV SCH (09:23)
[2021-04-24] MEDS: CHOLECALCIFEROL (VITD3) 2,000 UNIT CAP/TAB PO SCH (09:23)
[2021-04-24] MEDS: DexAMETHasone SOD PHOS 10MG/1ML VIAL INJ IV SCH (09:23)
[2021-04-24] MEDS: ENOXAPARIN SOD 40 MG/0.4 ML SYRINGE SC SCH (09:24)
[2021-04-24] MEDS: ASCORBIC ACID 1,000 MG TAB PO SCH (09:24)
[2021-04-24] MEDS: ZINC SULFATE 220mg CAP or TAB PO SCH (09:24)
[2021-04-24] MEDS: fentaNYL Drip 2500mCg/250mlNS 250 ML IV SCH ×2 (10:00→23:23)
[2021-04-24] MEDS ORDERED: levoFLOXacin 750MG 150 ML IV ONE (10:45)
[2021-04-24] MEDS: Jevity 1.2 Cal/Fiber 1 Liter GT SCH (12:49)
[2021-04-24] MEDS ORDERED: FLUCONAZOLE 200MG/100ML 100 ML IV ONE (14:00)
[2021-04-24] MEDS: NOREPINEPHRINE 8 MG/250ML KIT 250 ML IV SCH ×2 (21:23→22:45)
[2021-04-25] VITALS (101 sets, daily range): BP systolic 90–141; BP diastolic 51–85
[2021-04-25] MEDS: MIDAZOLAM DRIP 50 mg/50mL 50 ML IV SCH ×4 (04:17→20:07)
[2021-04-25] MEDS: FERROUS SULFATE 300 MG/5 ML ORAL LIQ NG SCH ×3 (06:13→20:07)
[2021-04-25] MEDS: SUCRALFATE 1 GM/10 ML ORAL SUSP GT SCH ×4 (06:13→20:06)
[2021-04-25] MEDS: PROPOFOL 100 ML IV SCH ×4 (06:14→22:37)
[2021-04-25] MEDS: FLUCONAZOLE 200MG/100ML 100 ML IV SCH (08:54)
[2021-04-25] MEDS: PANTOPRAZOLE 40 MG/10 ML VIAL INJ IV SCH ×2 (08:55→20:07)
[2021-04-25] MEDS: ENOXAPARIN SOD 40 MG/0.4 ML SYRINGE SC SCH (08:55)
[2021-04-25] MEDS: CHOLECALCIFEROL (VITD3) 2,000 UNIT CAP/TAB PO SCH (08:55)
[2021-04-25] MEDS: DexAMETHasone SOD PHOS 10MG/1ML VIAL INJ IV SCH (08:55)
[2021-04-25] MEDS: levoFLOXacin 750MG 150 ML IV SCH (09:45)
[2021-04-25] MEDS ORDERED: FUROSEMIDE 40 MG/4 ML VIAL IV SCH (10:00)
[2021-04-25] MEDS: BUDESONIDE (INHALATION) 0.5 MG/2 ML NEB NEB SCH ×2 (12:58→18:33)
[2021-04-25] MEDS: ALBUTEROL SULF 2.5 MG/0.5ML(0.5%) NEB SOLN NEB SCH ×3 (12:58→18:33)
[2021-04-25] MEDS: FUROSEMIDE 40 MG/4 ML VIAL IV SCH (17:24)
[2021-04-25] MEDS ORDERED: POTASSIUM EFFERVESENT TAB 25 MEQ GT ONE ×2 (17:45→20:00)
[2021-04-25] MEDS: fentaNYL Drip 2500mCg/250mlNS 250 ML IV SCH (22:36)
[2021-04-25] MEDS: NOREPINEPHRINE 8 MG/250ML KIT 250 ML IV SCH (22:45)
[2021-04-26] VITALS (103 sets, daily range): BP systolic 86–149; BP diastolic 45–100
[2021-04-26] MEDS: MIDAZOLAM DRIP 50 mg/50mL 50 ML IV SCH ×3 (01:02→22:47)
[2021-04-26] MEDS: PROPOFOL 100 ML IV SCH ×2 (02:26→22:46)
[2021-04-26 04:13] LABS: Basophils # (auto) 0 10 ^3/uL (0-0.2); Eosinophils # (auto) 0 10 ^3/uL (0-0.8); Lymphocytes # (auto) 0.8 10 ^3/uL (0.4-5.4); Lymphocytes % (auto) 9.6 % (10.0-50.0); Monocytes # (auto) 0.8 10 ^3/uL (0-1.3); Neutrophils # (auto) 6.5 10 ^3/uL (1.6-8.6)
[2021-04-26 04:15] LABS: Basophils % (auto) 0.6 % (0.0-2.0); Eosinophils % (auto) 0.3 % (0.0-7.0); Hematocrit 29.7 % (36.0-46.0); Hemoglobin 9.3 g/dL (12.2-16.2); Mean Corpuscular Hemoglobin 22.8 pg (28.0-32.0); Mean Corpuscular Hgb Conc. 31.4 g/dL (32.0-36.0); Mean Corpuscular Volume 72.6 fL (80.0-100.0); Monocytes % (auto) 9.3 % (0.0-12.0); Neutrophils % (auto) 80.2 % (37.0-80.0); Nucleated Red Blood Cells % 0.2 %; Red Blood Cells 4.09 10^6/uL (4.0-5.20); White Blood Cell 8.1 10^3/uL (4.4-10.8)
[2021-04-26 04:16] LABS: Red Cell Distribution Width 21.2 % (11.8-14.3)
[2021-04-26 04:31] LABS: BUN/Creatinine Ratio 39.2; Calcium 8.4 mg/dL (8.5-10.1); Potassium 3.8 mmol/L (3.5-5.1)
[2021-04-26] MEDS: SUCRALFATE 1 GM/10 ML ORAL SUSP GT SCH ×4 (05:55→22:45)
[2021-04-26] MEDS: FERROUS SULFATE 300 MG/5 ML ORAL LIQ NG SCH ×3 (05:56→22:45)
[2021-04-26] MEDS: FUROSEMIDE 40 MG/4 ML VIAL IV SCH ×2 (05:56→19:40)
[2021-04-26] MEDS: ALBUTEROL SULF 2.5 MG/0.5ML(0.5%) NEB SOLN NEB SCH ×3 (06:50→22:06)
[2021-04-26] MEDS: BUDESONIDE (INHALATION) 0.5 MG/2 ML NEB NEB SCH ×2 (06:50→22:06)
[2021-04-26] MEDS: POTASSIUM EFFERVESENT TAB 25 MEQ GT SCH (09:27)
[2021-04-26] MEDS: FLUCONAZOLE 200MG/100ML 100 ML IV SCH (09:27)
[2021-04-26] MEDS: CHOLECALCIFEROL (VITD3) 2,000 UNIT CAP/TAB PO SCH (09:28)
[2021-04-26] MEDS: levoFLOXacin 750MG 150 ML IV SCH (09:28)
[2021-04-26] MEDS: DexAMETHasone SOD PHOS 10MG/1ML VIAL INJ IV SCH (09:28)
[2021-04-26] MEDS: ENOXAPARIN SOD 40 MG/0.4 ML SYRINGE SC SCH (09:28)
[2021-04-26] MEDS: PANTOPRAZOLE 40 MG/10 ML VIAL INJ IV SCH ×2 (10:30→22:45)
[2021-04-26] MEDS: fentaNYL Drip 2500mCg/250mlNS 250 ML IV SCH (19:48)
[2021-04-27] VITALS (102 sets, daily range): BP systolic 88–136; BP diastolic 40–98
[2021-04-27] MEDS: MIDAZOLAM DRIP 50 mg/50mL 50 ML IV SCH ×7 (02:21→23:52)
[2021-04-27 04:23] LABS: Basophils # (auto) 0 10 ^3/uL (0-0.2); Eosinophils # (auto) 0 10 ^3/uL (0-0.8); Lymphocytes # (auto) 0.3 10 ^3/uL (0.4-5.4); Neutrophils % (auto) 90.3 % (37.0-80.0); Nucleated Red Blood Cells % 0.1 %
[2021-04-27 04:24] LABS: Hematocrit 33.5 % (36.0-46.0); Hemoglobin 10.5 g/dL (12.2-16.2); Lymphocytes % (auto) 2.1 % (10.0-50.0); Mean Corpuscular Hemoglobin 22.8 pg (28.0-32.0); Mean Corpuscular Hgb Conc. 31.2 g/dL (32.0-36.0); Mean Corpuscular Volume 73.1 fL (80.0-100.0); Monocytes # (auto) 1.1 10 ^3/uL (0-1.3); Monocytes % (auto) 7.6 % (0.0-12.0); Neutrophils # (auto) 12.5 10 ^3/uL (1.6-8.6); Red Blood Cells 4.58 10^6/uL (4.0-5.20); White Blood Cell 13.9 10^3/uL (4.4-10.8)
[2021-04-27 04:43] LABS: Potassium 3.6 mmol/L (3.5-5.1)
[2021-04-27 04:47] LABS: BUN/Creatinine Ratio 44.8; Calcium 8.5 mg/dL (8.5-10.1)
[2021-04-27] MEDS: SUCRALFATE 1 GM/10 ML ORAL SUSP GT SCH ×4 (05:19→22:38)
[2021-04-27] MEDS: FUROSEMIDE 40 MG/4 ML VIAL IV SCH ×2 (05:19→18:00)
[2021-04-27] MEDS: fentaNYL Drip 2500mCg/250mlNS 250 ML IV SCH ×4 (05:21→23:54)
[2021-04-27] MEDS: PROPOFOL 100 ML IV SCH ×4 (05:23→23:52)
[2021-04-27] MEDS: FERROUS SULFATE 300 MG/5 ML ORAL LIQ NG SCH ×3 (06:20→22:39)
[2021-04-27] MEDS: BUDESONIDE (INHALATION) 0.5 MG/2 ML NEB NEB SCH ×2 (06:35→19:22)
[2021-04-27] MEDS: ALBUTEROL SULF 2.5 MG/0.5ML(0.5%) NEB SOLN NEB SCH ×3 (06:37→19:22)
[2021-04-27 10:13] LABS: INR 1.05 (0.9-1.15); Partial Thromboplastin Time 20.5 sec (23.6-33.0)
[2021-04-27] MEDS: levoFLOXacin 750MG 150 ML IV SCH (10:30)
[2021-04-27] MEDS: PANTOPRAZOLE 40 MG/10 ML VIAL INJ IV SCH ×2 (10:30→22:39)
[2021-04-27] MEDS ORDERED: ENOXAPARIN SOD 100 MG/1 ML SYRINGE SC ONE (11:45)
[2021-04-27] MEDS: POTASSIUM EFFERVESENT TAB 25 MEQ GT SCH (12:23)
[2021-04-27] MEDS: DexAMETHasone SOD PHOS 10MG/1ML VIAL INJ IV SCH (12:24)
[2021-04-27] MEDS: CHOLECALCIFEROL (VITD3) 2,000 UNIT CAP/TAB PO SCH (12:34)
[2021-04-27] MEDS: ATRACURIUM BESYLATE 1,000 MG in D5W 5% 150 ML IV SCH ×2 (12:54→17:26)
[2021-04-27] MEDS: ENOXAPARIN SOD 100 MG/1 ML SYRINGE SC SCH (22:39)
[2021-04-28] VITALS (64 sets, daily range): BP systolic 78–190; BP diastolic 33–107
[2021-04-28 04:23] LABS: Hemoglobin 10.1 g/dL (12.2-16.2)
[2021-04-28 04:42] LABS: Potassium 3.6 mmol/L (3.5-5.1)
[2021-04-28 04:49] LABS: BUN/Creatinine Ratio 34.5; Calcium 7.7 mg/dL (8.5-10.1)
[2021-04-28 05:21] LABS: Hematocrit 31.4 % (36.0-46.0); Mean Corpuscular Hemoglobin 24.1 pg (28.0-32.0); Mean Corpuscular Hgb Conc. 32.2 g/dL (32.0-36.0); Mean Corpuscular Volume 74.9 fL (80.0-100.0); Red Blood Cells 4.19 10^6/uL (4.0-5.20)
[2021-04-28 05:22] LABS: Red Cell Distribution Width 23.8 % (11.8-14.3)
[2021-04-28] MEDS: NOREPINEPHRINE 8 MG/250ML KIT 250 ML IV SCH ×3 (05:39→22:45)
[2021-04-28] MEDS: MIDAZOLAM DRIP 50 mg/50mL 50 ML IV SCH ×4 (05:40→22:00)
[2021-04-28] MEDS: PROPOFOL 100 ML IV SCH ×4 (05:41→21:59)
[2021-04-28] MEDS: FERROUS SULFATE 300 MG/5 ML ORAL LIQ NG SCH ×3 (06:00→23:06)
[2021-04-28] MEDS: SUCRALFATE 1 GM/10 ML ORAL SUSP GT SCH ×4 (06:28→23:07)
[2021-04-28] MEDS: FUROSEMIDE 40 MG/4 ML VIAL IV SCH (06:29)
[2021-04-28] MEDS: fentaNYL Drip 2500mCg/250mlNS 250 ML IV SCH (07:01)
[2021-04-28] MEDS: ATRACURIUM BESYLATE 1,000 MG in D5W 5% 150 ML IV SCH (09:11)
[2021-04-28 09:43] LABS: Basophils % (manual) 0 (0.0-2.0); Blast Cells 0; Lymphocytes % (manual) 0 (10.0-50.0); Myelocytes % 0; Promyelocytes % 0; Reactive Lymphocytes 0
[2021-04-28 09:59] LABS: Band Neutrophils % (manual) 45; Eosinophils % (manual) 1 (0-7); Metamyelocytes % 4; Monocytes % (manual) 1 (0-12)
[2021-04-28] MEDS ORDERED: PHENYLEPHRINE IV 250 ML IV ONE (12:50)
[2021-04-28] MEDS: POTASSIUM EFFERVESENT TAB 25 MEQ GT SCH (13:12)
[2021-04-28] MEDS: DexAMETHasone SOD PHOS 10MG/1ML VIAL INJ IV SCH (13:12)
[2021-04-28] MEDS: levoFLOXacin 750MG 150 ML IV SCH (13:12)
[2021-04-28] MEDS: ENOXAPARIN SOD 100 MG/1 ML SYRINGE SC SCH ×2 (13:12→23:05)
[2021-04-28] MEDS: CHOLECALCIFEROL (VITD3) 2,000 UNIT CAP/TAB PO SCH (13:12)
[2021-04-28] MEDS: PANTOPRAZOLE 40 MG/10 ML VIAL INJ IV SCH ×2 (13:12→23:05)
[2021-04-28] MEDS: PHENYLEPHRINE IV 250 ML IV SCH (13:15)
[2021-04-28] MEDS: BUDESONIDE (INHALATION) 0.5 MG/2 ML NEB NEB SCH (16:25)
[2021-04-28] MEDS: ALBUTEROL SULF 2.5 MG/0.5ML(0.5%) NEB SOLN NEB SCH ×2 (16:25→16:26)
[2021-04-29] VITALS (102 sets, daily range): BP systolic 98–164; BP diastolic 39–78
[2021-04-29] MEDS: PROPOFOL 100 ML IV SCH ×2 (00:23→23:15)
[2021-04-29] MEDS: fentaNYL Drip 2500mCg/250mlNS 250 ML IV SCH ×2 (00:25→13:25)
[2021-04-29] MEDS: BUDESONIDE (INHALATION) 0.5 MG/2 ML NEB NEB SCH ×3 (00:57→18:56)
[2021-04-29] MEDS: ALBUTEROL SULF 2.5 MG/0.5ML(0.5%) NEB SOLN NEB SCH ×3 (00:58→18:56)
[2021-04-29] MEDS: PHENYLEPHRINE IV 250 ML IV SCH ×4 (02:04→22:35)
[2021-04-29] MEDS: MIDAZOLAM DRIP 50 mg/50mL 50 ML IV SCH ×4 (02:10→23:14)
[2021-04-29 04:24] LABS: Hematocrit 29.9 % (36.0-46.0)
[2021-04-29 04:27] LABS: Hemoglobin 9.8 g/dL (12.2-16.2); Mean Corpuscular Hemoglobin 24.1 pg (28.0-32.0); Mean Corpuscular Hgb Conc. 32.7 g/dL (32.0-36.0); Mean Corpuscular Volume 73.9 fL (80.0-100.0); Red Blood Cells 4.04 10^6/uL (4.0-5.20); White Blood Cell 25.2 10^3/uL (4.4-10.8)
[2021-04-29 04:50] LABS: BUN/Creatinine Ratio 35.9; Calcium 7.2 mg/dL (8.5-10.1); Potassium 4.5 mmol/L (3.5-5.1)
[2021-04-29 05:14] LABS: Red Cell Distribution Width 24.6 % (11.8-14.3)
[2021-04-29] MEDS: FERROUS SULFATE 300 MG/5 ML ORAL LIQ NG SCH (06:00)
[2021-04-29] MEDS: SUCRALFATE 1 GM/10 ML ORAL SUSP GT SCH ×4 (06:26→22:42)
[2021-04-29 08:20] LABS: Basophils % (manual) 0 (0.0-2.0); Blast Cells 0; Eosinophils % (manual) 0 (0-7); Myelocytes % 0; Promyelocytes % 0; Reactive Lymphocytes 0
[2021-04-29 08:24] LABS: Band Neutrophils % (manual) 26; Lymphocytes % (manual) 4 (10.0-50.0); Metamyelocytes % 2; Monocytes % (manual) 2 (0-12)
[2021-04-29] MEDS: POTASSIUM EFFERVESENT TAB 25 MEQ GT SCH (10:00)
[2021-04-29] MEDS: DexAMETHasone SOD PHOS 10MG/1ML VIAL INJ IV SCH (11:03)
[2021-04-29] MEDS: FUROSEMIDE 40 MG/4 ML VIAL IV SCH (11:03)
[2021-04-29] MEDS: CHOLECALCIFEROL (VITD3) 2,000 UNIT CAP/TAB PO SCH (11:04)
[2021-04-29] MEDS: PANTOPRAZOLE 40 MG/10 ML VIAL INJ IV SCH ×2 (11:04→22:42)
[2021-04-29] MEDS: levoFLOXacin 750MG 150 ML IV SCH (11:04)
[2021-04-29] MEDS: ENOXAPARIN SOD 100 MG/1 ML SYRINGE SC SCH (11:05)
[2021-04-29] MEDS: ATRACURIUM BESYLATE 1,000 MG in D5W 5% 150 ML IV SCH (12:30)
[2021-04-29] MEDS: MEROPENEM 1GM IVPB 100 ML IV SCH ×2 (15:38→23:06)
[2021-04-29] MEDS: LINEZOLID 600MG/300ML 300 ML IV SCH (22:42)
[2021-04-29] MEDS: ENOXAPARIN SOD 120 MG/0.8 ML SYRINGE SC SCH (22:43)
[2021-04-29] MEDS: NOREPINEPHRINE 8 MG/250ML KIT 250 ML IV SCH (22:44)
[2021-04-30] VITALS (102 sets, daily range): BP systolic 97–151; BP diastolic 42–76
[2021-04-30 04:36] LABS: Hemoglobin 8.7 g/dL (12.2-16.2); Mean Corpuscular Volume 74.9 fL (80.0-100.0); Nucleated Red Blood Cells % 0.1 %
[2021-04-30 04:43] LABS: Basophils # (auto) 0 10 ^3/uL (0-0.2); Basophils % (auto) 0.1 % (0.0-2.0); Eosinophils # (auto) 0.1 10 ^3/uL (0-0.8); Eosinophils % (auto) 0.4 % (0.0-7.0); Hematocrit 27.1 % (36.0-46.0); Lymphocytes # (auto) 1.2 10 ^3/uL (0.4-5.4); Lymphocytes % (auto) 6.4 % (10.0-50.0); Monocytes % (auto) 5.3 % (0.0-12.0); Neutrophils # (auto) 16.2 10 ^3/uL (1.6-8.6); Neutrophils % (auto) 87.8 % (37.0-80.0); Red Blood Cells 3.62 10^6/uL (4.0-5.20); White Blood Cell 18.4 10^3/uL (4.4-10.8)
[2021-04-30 04:44] LABS: Red Cell Distribution Width 26.5 % (11.8-14.3)
[2021-04-30 04:51] LABS: INR 1.12 (0.9-1.15); Partial Thromboplastin Time 25.6 sec (23.6-33.0)
[2021-04-30 05:00] LABS: BUN/Creatinine Ratio 45.7; Calcium 7.9 mg/dL (8.5-10.1); Potassium 3.7 mmol/L (3.5-5.1)
[2021-04-30] MEDS: PROPOFOL 100 ML IV SCH ×3 (05:43→22:38)
[2021-04-30] MEDS: MIDAZOLAM DRIP 50 mg/50mL 50 ML IV SCH ×2 (05:44→21:19)
[2021-04-30] MEDS: SUCRALFATE 1 GM/10 ML ORAL SUSP GT SCH ×4 (06:08→22:37)
[2021-04-30] MEDS: MEROPENEM 1GM IVPB 100 ML IV SCH ×3 (06:09→23:46)
[2021-04-30] MEDS: BUDESONIDE (INHALATION) 0.5 MG/2 ML NEB NEB SCH ×2 (06:17→22:00)
[2021-04-30] MEDS: ALBUTEROL SULF 2.5 MG/0.5ML(0.5%) NEB SOLN NEB SCH ×3 (06:17→22:00)
[2021-04-30] MEDS: PHENYLEPHRINE IV 250 ML IV SCH ×3 (06:55→23:35)
[2021-04-30] MEDS: FUROSEMIDE 40 MG/4 ML VIAL IV SCH (09:51)
[2021-04-30] MEDS: PANTOPRAZOLE 40 MG/10 ML VIAL INJ IV SCH ×2 (09:51→22:37)
[2021-04-30] MEDS: DexAMETHasone SOD PHOS 10MG/1ML VIAL INJ IV SCH (09:51)
[2021-04-30] MEDS: POTASSIUM EFFERVESENT TAB 25 MEQ GT SCH (09:51)
[2021-04-30] MEDS: LINEZOLID 600MG/300ML 300 ML IV SCH ×2 (09:51→21:21)
[2021-04-30] MEDS: CHOLECALCIFEROL (VITD3) 2,000 UNIT CAP/TAB PO SCH (09:52)
[2021-04-30] MEDS: ENOXAPARIN SOD 120 MG/0.8 ML SYRINGE SC SCH (09:52)
[2021-04-30] MEDS: fentaNYL Drip 2500mCg/250mlNS 250 ML IV SCH (10:52)
[2021-04-30] MEDS ORDERED: ENOXAPARIN SOD 40 MG/0.4 ML SYRINGE SC ONE (11:00)
[2021-04-30] MEDS ORDERED: LIDOCAINE 1% (LOCAL ANESTH.) PF 5ml SDV ID ONE (12:15)
[2021-04-30 12:21] LABS: Albumin 2.4 g/dL (3.4-5.0); Magnesium 2.8 mg/dL (1.6-2.6)
[2021-04-30 12:27] LABS: Bilirubin, Direct 0.1 mg/dL (0-0.2); Bilirubin, Total 0.6 mg/dL (0.2-1.0); Phosphorus 2.2 mg/dL (2.5-4.90)
[2021-04-30] MEDS: ATRACURIUM BESYLATE 1,000 MG in D5W 5% 150 ML IV SCH (12:30)
[2021-04-30] MEDS ORDERED: TPN PER PHARMACY 0 ML IV SCH (14:15)
[2021-04-30] MEDS ORDERED: POTASSIUM PHOSP 22MEQ(15MMOLE) in NS 100 ML IV ONE (15:00)
[2021-04-30] MEDS ORDERED: TPN PER PHARMACY IV NR ×7 (20:00)
[2021-04-30] MEDS: SODIUM CHLOR 0.9% PF (SALINE LOCK) 10ML VIAL/SYR IV SCH (21:23)
[2021-04-30] MEDS: NOREPINEPHRINE 8 MG/250ML KIT 250 ML IV SCH (22:39)
[2021-04-30] MEDS: ACCU-CHEK COMFORT CURVE STRIP VI SCH (23:52)
[2021-04-30] MEDS: InsuLIN REG 1unit/0.01ml Soln (100units/ml) SC SCH (23:53)
[2021-05-01] VITALS (83 sets, daily range): BP systolic 95–127; BP diastolic 45–63
[2021-05-01] MEDS ORDERED: DEXTROSE (50%) 50ML SYRG IV SCH
[2021-05-01] MEDS: MIDAZOLAM DRIP 50 mg/50mL 50 ML IV SCH ×6 (01:21→22:12)
[2021-05-01] MEDS: PROPOFOL 100 ML IV SCH ×5 (02:38→21:00)
[2021-05-01 04:28] LABS: Magnesium 2.4 mg/dL (1.6-2.6); Potassium 3.4 mmol/L (3.5-5.1)
[2021-05-01 04:38] LABS: Albumin 2.3 g/dL (3.4-5.0); Bilirubin, Total 0.3 mg/dL (0.2-1.0); CRP High Sensitivity 2.5 mg/dL (< 0.3); Phosphorus 1.6 mg/dL (2.5-4.90); Total Protein 5.6 g/dL (6.4-8.2)
[2021-05-01] MEDS: InsuLIN REG 1unit/0.01ml Soln (100units/ml) SC SCH ×3 (06:00→18:16)
[2021-05-01] MEDS: MEROPENEM 1GM IVPB 100 ML IV SCH ×3 (06:00→22:57)
[2021-05-01] MEDS: ACCU-CHEK COMFORT CURVE STRIP VI SCH ×3 (06:01→18:15)
[2021-05-01] MEDS: SUCRALFATE 1 GM/10 ML ORAL SUSP GT SCH ×4 (06:01→22:10)
[2021-05-01] MEDS: PHENYLEPHRINE IV 250 ML IV SCH ×2 (07:55→13:00)
[2021-05-01] MEDS ORDERED: POTASSIUM PHOSPHATE 44 MEQ in D5W 5% 250 ML IV ONE (09:30)
[2021-05-01] MEDS: FUROSEMIDE 40 MG/4 ML VIAL IV SCH (10:18)
[2021-05-01] MEDS: ENOXAPARIN SOD 40 MG/0.4 ML SYRINGE SC SCH (10:18)
[2021-05-01] MEDS: LINEZOLID 600MG/300ML 300 ML IV SCH ×2 (10:19→22:10)
[2021-05-01] MEDS: PANTOPRAZOLE 40 MG/10 ML VIAL INJ IV SCH ×2 (10:19→22:10)
[2021-05-01] MEDS: SODIUM CHLOR 0.9% PF (SALINE LOCK) 10ML VIAL/SYR IV SCH ×2 (10:19→22:10)
[2021-05-01] MEDS: POTASSIUM EFFERVESENT TAB 25 MEQ GT SCH (10:19)
[2021-05-01] MEDS: DexAMETHasone SOD PHOS 10MG/1ML VIAL INJ IV SCH (10:20)
[2021-05-01] MEDS: CHOLECALCIFEROL (VITD3) 2,000 UNIT CAP/TAB PO SCH (10:53)
[2021-05-01] MEDS: fentaNYL Drip 2500mCg/250mlNS 250 ML IV SCH (11:53)
[2021-05-01] MEDS: ATRACURIUM BESYLATE 1,000 MG in D5W 5% 150 ML IV SCH (11:54)
[2021-05-01] MEDS: BUDESONIDE (INHALATION) 0.5 MG/2 ML NEB NEB SCH (18:44)
[2021-05-01] MEDS: ALBUTEROL SULF 2.5 MG/0.5ML(0.5%) NEB SOLN NEB SCH (18:45)
[2021-05-01] MEDS ORDERED: TPN PER PHARMACY IV NR ×9 (20:00)
[2021-05-01] MEDS: NOREPINEPHRINE 8 MG/250ML KIT 250 ML IV SCH (22:45)
[2021-05-02] VITALS (100 sets, daily range): BP systolic 103–129; BP diastolic 43–83
[2021-05-02] MEDS: InsuLIN REG 1unit/0.01ml Soln (100units/ml) SC SCH ×4 (00:01→18:22)
[2021-05-02] MEDS: ACCU-CHEK COMFORT CURVE STRIP VI SCH ×4 (00:02→17:18)
[2021-05-02] MEDS: PHENYLEPHRINE IV 250 ML IV SCH ×3 (00:02→17:15)
[2021-05-02] MEDS: fentaNYL Drip 2500mCg/250mlNS 250 ML IV SCH ×2 (00:04→11:00)
[2021-05-02] MEDS: MIDAZOLAM DRIP 50 mg/50mL 50 ML IV SCH ×4 (01:30→18:48)
[2021-05-02 05:10] LABS: Potassium 3.5 mmol/L (3.5-5.1)
[2021-05-02 05:21] LABS: Albumin 2.1 g/dL (3.4-5.0); BUN/Creatinine Ratio 66.7; Bilirubin, Total 0.2 mg/dL (0.2-1.0); Calcium 7.7 mg/dL (8.5-10.1); Magnesium 2.4 mg/dL (1.6-2.6); Total Protein 5.2 g/dL (6.4-8.2)
[2021-05-02 05:42] LABS: Basophils # (auto) 0 10 ^3/uL (0-0.2); Basophils % (auto) 0.6 % (0.0-2.0); Eosinophils # (auto) 0.1 10 ^3/uL (0-0.8); Eosinophils % (auto) 1.9 % (0.0-7.0); Hematocrit 25.1 % (36.0-46.0); Lymphocytes # (auto) 1.7 10 ^3/uL (0.4-5.4); Lymphocytes % (auto) 23.6 % (10.0-50.0); Mean Corpuscular Hgb Conc. 31.8 g/dL (32.0-36.0); Mean Corpuscular Volume 75.4 fL (80.0-100.0); Monocytes # (auto) 0.8 10 ^3/uL (0-1.3); Monocytes % (auto) 11.4 % (0.0-12.0); Neutrophils # (auto) 4.6 10 ^3/uL (1.6-8.6); Neutrophils % (auto) 62.5 % (37.0-80.0); Nucleated Red Blood Cells % 0.4 %; Red Blood Cells 3.33 10^6/uL (4.0-5.20); Red Cell Distribution Width 26.8 % (11.8-14.3); White Blood Cell 7.3 10^3/uL (4.4-10.8)
[2021-05-02] MEDS: BUDESONIDE (INHALATION) 0.5 MG/2 ML NEB NEB SCH ×2 (06:02→22:30)
[2021-05-02] MEDS: ALBUTEROL SULF 2.5 MG/0.5ML(0.5%) NEB SOLN NEB SCH ×3 (06:02→22:30)
[2021-05-02] MEDS: SUCRALFATE 1 GM/10 ML ORAL SUSP GT SCH ×4 (06:27→21:28)
[2021-05-02] MEDS: MEROPENEM 1GM IVPB 100 ML IV SCH ×3 (06:28→21:29)
[2021-05-02] MEDS: PANTOPRAZOLE 40 MG/10 ML VIAL INJ IV SCH ×2 (10:07→21:29)
[2021-05-02] MEDS: ENOXAPARIN SOD 40 MG/0.4 ML SYRINGE SC SCH (10:07)
[2021-05-02] MEDS: FUROSEMIDE 40 MG/4 ML VIAL IV SCH (10:07)
[2021-05-02] MEDS: CHOLECALCIFEROL (VITD3) 2,000 UNIT CAP/TAB PO SCH (10:07)
[2021-05-02] MEDS: DexAMETHasone SOD PHOS 10MG/1ML VIAL INJ IV SCH (10:08)
[2021-05-02] MEDS: POTASSIUM EFFERVESENT TAB 25 MEQ GT SCH (10:08)
[2021-05-02] MEDS: LINEZOLID 600MG/300ML 300 ML IV SCH (10:58)
[2021-05-02] MEDS: SODIUM CHLOR 0.9% PF (SALINE LOCK) 10ML VIAL/SYR IV SCH ×2 (10:58→21:29)
[2021-05-02] MEDS: PROPOFOL 100 ML IV SCH ×5 (10:59→21:00)
[2021-05-02] MEDS ORDERED: POTASSIUM PHOSPHATE 44 MEQ in D5W 5% 250 ML IV ONE (11:00)
[2021-05-02] MEDS: ATRACURIUM BESYLATE 1,000 MG in D5W 5% 150 ML IV SCH (12:30)
[2021-05-02] MEDS ORDERED: TPN PER PHARMACY IV NR ×10 (20:00)
[2021-05-02] MEDS: NOREPINEPHRINE 8 MG/250ML KIT 250 ML IV SCH (21:30)
[2021-05-03] VITALS (103 sets, daily range): BP systolic 111–151; BP diastolic 43–66
[2021-05-03] MEDS: ACCU-CHEK COMFORT CURVE STRIP VI SCH ×5 (00:05→23:44)
[2021-05-03] MEDS: fentaNYL Drip 2500mCg/250mlNS 250 ML IV SCH ×3 (00:06→23:41)
[2021-05-03] MEDS: MIDAZOLAM DRIP 50 mg/50mL 50 ML IV SCH ×5 (00:07→20:00)
[2021-05-03] MEDS: PROPOFOL 100 ML IV SCH ×6 (00:07→22:00)
[2021-05-03] MEDS: PHENYLEPHRINE IV 250 ML IV SCH ×3 (01:35→18:15)
[2021-05-03 04:35] LABS: Basophils # (auto) 0 10 ^3/uL (0-0.2); Hemoglobin 7.9 g/dL (12.2-16.2); Lymphocytes # (auto) 1.5 10 ^3/uL (0.4-5.4); Monocytes # (auto) 0.9 10 ^3/uL (0-1.3); Nucleated Red Blood Cells % 0.3 %
[2021-05-03 04:55] LABS: Albumin 2.2 g/dL (3.4-5.0); Calcium 7.7 mg/dL (8.5-10.1); Magnesium 2.4 mg/dL (1.6-2.6); Potassium 4.7 mmol/L (3.5-5.1)
[2021-05-03 04:56] LABS: Basophils % (auto) 0.3 % (0.0-2.0); Eosinophils # (auto) 0.6 10 ^3/uL (0-0.8); Eosinophils % (auto) 5.6 % (0.0-7.0); Hematocrit 25.2 % (36.0-46.0); Lymphocytes % (auto) 12.9 % (10.0-50.0); Mean Corpuscular Hemoglobin 24.3 pg (28.0-32.0); Mean Corpuscular Hgb Conc. 31.5 g/dL (32.0-36.0); Mean Corpuscular Volume 77.2 fL (80.0-100.0); Neutrophils # (auto) 8.4 10 ^3/uL (1.6-8.6); Neutrophils % (auto) 73.2 % (37.0-80.0); Red Blood Cells 3.26 10^6/uL (4.0-5.20); White Blood Cell 11.4 10^3/uL (4.4-10.8)
[2021-05-03 04:57] LABS: Red Cell Distribution Width 26.2 % (11.8-14.3)
[2021-05-03 04:58] LABS: Bilirubin, Total 0.3 mg/dL (0.2-1.0); Total Protein 5.4 g/dL (6.4-8.2)
[2021-05-03] MEDS: InsuLIN REG 1unit/0.01ml Soln (100units/ml) SC SCH ×5 (05:33→23:45)
[2021-05-03] MEDS: SUCRALFATE 1 GM/10 ML ORAL SUSP GT SCH ×4 (05:33→20:49)
[2021-05-03] MEDS: MEROPENEM 1GM IVPB 100 ML IV SCH ×3 (05:34→23:30)
[2021-05-03] MEDS: ALBUTEROL SULF 2.5 MG/0.5ML(0.5%) NEB SOLN NEB SCH ×2 (06:07→22:10)
[2021-05-03] MEDS: BUDESONIDE (INHALATION) 0.5 MG/2 ML NEB NEB SCH ×2 (06:07→22:10)
[2021-05-03] MEDS: CHOLECALCIFEROL (VITD3) 2,000 UNIT CAP/TAB PO SCH (09:43)
[2021-05-03] MEDS: PANTOPRAZOLE 40 MG/10 ML VIAL INJ IV SCH ×2 (09:43→20:49)
[2021-05-03] MEDS: POTASSIUM EFFERVESENT TAB 25 MEQ GT SCH (09:43)
[2021-05-03] MEDS: FUROSEMIDE 40 MG/4 ML VIAL IV SCH (09:43)
[2021-05-03] MEDS: ENOXAPARIN SOD 40 MG/0.4 ML SYRINGE SC SCH (09:43)
[2021-05-03] MEDS: DexAMETHasone SOD PHOS 10MG/1ML VIAL INJ IV SCH (09:43)
[2021-05-03] MEDS: SODIUM CHLOR 0.9% PF (SALINE LOCK) 10ML VIAL/SYR IV SCH ×2 (09:44→20:49)
[2021-05-03] MEDS ORDERED: ENOXAPARIN SOD 40 MG/0.4 ML SYRINGE SC SCH (12:00)
[2021-05-03] MEDS: ATRACURIUM BESYLATE 1,000 MG in D5W 5% 150 ML IV SCH (12:30)
[2021-05-03] MEDS ORDERED: TPN PER PHARMACY IV NR ×10 (20:00)
[2021-05-03] MEDS: NOREPINEPHRINE 8 MG/250ML KIT 250 ML IV SCH (20:49)
[2021-05-04] VITALS (64 sets, daily range): BP systolic 104–155; BP diastolic 45–78
[2021-05-04] MEDS: PROPOFOL 100 ML IV SCH ×6 (01:46→23:31)
[2021-05-04] MEDS: PHENYLEPHRINE IV 250 ML IV SCH ×3 (02:35→19:15)
[2021-05-04] MEDS: MIDAZOLAM DRIP 50 mg/50mL 50 ML IV SCH ×5 (04:00→19:30)
[2021-05-04 04:52] LABS: Hematocrit 23.4 % (36.0-46.0); Hemoglobin 7.6 g/dL (12.2-16.2); Mean Corpuscular Hemoglobin 24.8 pg (28.0-32.0); Mean Corpuscular Hgb Conc. 32.4 g/dL (32.0-36.0); Mean Corpuscular Volume 76.6 fL (80.0-100.0); Red Blood Cells 3.06 10^6/uL (4.0-5.20); White Blood Cell 10.3 10^3/uL (4.4-10.8)
[2021-05-04 04:53] LABS: Red Cell Distribution Width 26.3 % (11.8-14.3)
[2021-05-04 04:54] LABS: Basophils % (manual) 0 (0.0-2.0); Blast Cells 0; Calcium 7.6 mg/dL (8.5-10.1); Metamyelocytes % 0; Potassium 4.2 mmol/L (3.5-5.1); Promyelocytes % 0; Reactive Lymphocytes 0
[2021-05-04 04:58] LABS: Albumin 1.9 g/dL (3.4-5.0); BUN/Creatinine Ratio 73.9; Magnesium 2.1 mg/dL (1.6-2.6)
[2021-05-04 05:01] LABS: Bilirubin, Total 0.3 mg/dL (0.2-1.0); Phosphorus 2.3 mg/dL (2.5-4.90); Total Protein 5.3 g/dL (6.4-8.2)
[2021-05-04] MEDS: InsuLIN REG 1unit/0.01ml Soln (100units/ml) SC SCH ×3 (06:00→17:56)
[2021-05-04] MEDS: SUCRALFATE 1 GM/10 ML ORAL SUSP GT SCH ×4 (06:06→22:27)
[2021-05-04] MEDS: ACCU-CHEK COMFORT CURVE STRIP VI SCH ×3 (06:06→17:48)
[2021-05-04] MEDS: MEROPENEM 1GM IVPB 100 ML IV SCH ×3 (06:07→22:29)
[2021-05-04] MEDS: ALBUTEROL SULF 2.5 MG/0.5ML(0.5%) NEB SOLN NEB SCH ×3 (06:13→22:30)
[2021-05-04] MEDS: BUDESONIDE (INHALATION) 0.5 MG/2 ML NEB NEB SCH ×2 (06:13→22:29)
[2021-05-04 06:44] LABS: Band Neutrophils % (manual) 14; Eosinophils % (manual) 8 (0-7); Lymphocytes % (manual) 11 (10.0-50.0); Monocytes % (manual) 7 (0-12); Myelocytes % 2
[2021-05-04] MEDS ORDERED: SODIUM PHOSP 20MEQ(15MMOL) IN NS 100 ML IV ONE (10:45)
[2021-05-04] MEDS: FUROSEMIDE 20 MG/2 ML VIAL IV SCH (11:14)
[2021-05-04] MEDS: PANTOPRAZOLE 40 MG/10 ML VIAL INJ IV SCH ×2 (11:14→22:27)
[2021-05-04] MEDS: SODIUM CHLOR 0.9% PF (SALINE LOCK) 10ML VIAL/SYR IV SCH ×2 (11:14→22:27)
[2021-05-04] MEDS: DexAMETHasone SOD PHOS 10MG/1ML VIAL INJ IV SCH (11:14)
[2021-05-04] MEDS: CHOLECALCIFEROL (VITD3) 2,000 UNIT CAP/TAB PO SCH (11:15)
[2021-05-04] MEDS: ENOXAPARIN SOD 40 MG/0.4 ML SYRINGE SC SCH (11:18)
[2021-05-04] MEDS: ATRACURIUM BESYLATE 1,000 MG in D5W 5% 150 ML IV SCH (12:14)
[2021-05-04] MEDS: fentaNYL Drip 2500mCg/250mlNS 250 ML IV SCH (13:31)
[2021-05-04] MEDS ORDERED: TPN PER PHARMACY IV NR ×10 (20:00)
[2021-05-05] VITALS (55 sets, daily range): BP systolic 107–148; BP diastolic 43–74
[2021-05-05] MEDS: MIDAZOLAM DRIP 50 mg/50mL 50 ML IV SCH ×4 (00:30→20:54)
[2021-05-05] MEDS: fentaNYL Drip 2500mCg/250mlNS 250 ML IV SCH ×2 (02:02→13:09)
[2021-05-05] MEDS: PROPOFOL 100 ML IV SCH ×4 (02:56→23:50)
[2021-05-05 04:53] LABS: Hematocrit 24.5 % (36.0-46.0); Mean Corpuscular Volume 76.6 fL (80.0-100.0)
[2021-05-05 04:54] LABS: Hemoglobin 7.9 g/dL (12.2-16.2); Mean Corpuscular Hemoglobin 24.8 pg (28.0-32.0); Mean Corpuscular Hgb Conc. 32.4 g/dL (32.0-36.0); Red Blood Cells 3.19 10^6/uL (4.0-5.20); White Blood Cell 8.9 10^3/uL (4.4-10.8)
[2021-05-05 05:10] LABS: Calcium 8.1 mg/dL (8.5-10.1); Magnesium 2.2 mg/dL (1.6-2.6); Potassium 3.6 mmol/L (3.5-5.1)
[2021-05-05 05:12] LABS: Red Cell Distribution Width 26.8 % (11.8-14.3)
[2021-05-05 05:13] LABS: BUN/Creatinine Ratio 105.6; Bilirubin, Total 0.3 mg/dL (0.2-1.0); Phosphorus 3.6 mg/dL (2.5-4.90); Total Protein 5.5 g/dL (6.4-8.2)
[2021-05-05 05:15] LABS: Basophils % (manual) 0 (0.0-2.0); Blast Cells 0; Promyelocytes % 0; Reactive Lymphocytes 0
[2021-05-05] MEDS: InsuLIN REG 1unit/0.01ml Soln (100units/ml) SC SCH ×5 (06:00→23:50)
[2021-05-05] MEDS: ACCU-CHEK COMFORT CURVE STRIP VI SCH ×5 (06:08→23:50)
[2021-05-05] MEDS: SUCRALFATE 1 GM/10 ML ORAL SUSP GT SCH ×4 (06:08→22:14)
[2021-05-05 07:15] LABS: Band Neutrophils % (manual) 3; Eosinophils % (manual) 12 (0-7); Lymphocytes % (manual) 9 (10.0-50.0); Metamyelocytes % 1; Monocytes % (manual) 2 (0-12); Myelocytes % 1
[2021-05-05] MEDS: NOREPINEPHRINE 8 MG/250ML KIT 250 ML IV SCH ×2 (07:25→22:45)
[2021-05-05] MEDS: PHENYLEPHRINE IV 250 ML IV SCH ×3 (07:26→20:15)
[2021-05-05] MEDS: MEROPENEM 1GM IVPB 100 ML IV SCH ×3 (07:27→23:00)
[2021-05-05] MEDS: ENOXAPARIN SOD 40 MG/0.4 ML SYRINGE SC SCH (07:30)
[2021-05-05] MEDS: CHOLECALCIFEROL (VITD3) 2,000 UNIT CAP/TAB PO SCH (08:05)
[2021-05-05] MEDS: SODIUM CHLOR 0.9% PF (SALINE LOCK) 10ML VIAL/SYR IV SCH ×2 (08:05→22:14)
[2021-05-05] MEDS: ALBUTEROL SULF 2.5 MG/0.5ML(0.5%) NEB SOLN NEB SCH ×3 (09:45→18:39)
[2021-05-05] MEDS: BUDESONIDE (INHALATION) 0.5 MG/2 ML NEB NEB SCH ×2 (09:45→18:39)
[2021-05-05] MEDS: PANTOPRAZOLE 40 MG/10 ML VIAL INJ IV SCH ×2 (10:10→22:14)
[2021-05-05] MEDS: DexAMETHasone SOD PHOS 10MG/1ML VIAL INJ IV SCH (10:10)
[2021-05-05] MEDS: FUROSEMIDE 20 MG/2 ML VIAL IV SCH (10:10)
[2021-05-05 12:17] LABS: Hematocrit 29.6 % (36.0-46.0); Hemoglobin 9.3 g/dL (12.2-16.2); Mean Corpuscular Hemoglobin 24.1 pg (28.0-32.0); Mean Corpuscular Hgb Conc. 31.5 g/dL (32.0-36.0); Mean Corpuscular Volume 76.6 fL (80.0-100.0); Red Blood Cells 3.86 10^6/uL (4.0-5.20); White Blood Cell 12.9 10^3/uL (4.4-10.8)
[2021-05-05 12:23] LABS: Red Cell Distribution Width 27.7 % (11.8-14.3)
[2021-05-05 12:25] LABS: Basophils % (manual) 0 (0.0-2.0); Blast Cells 0; Promyelocytes % 0; Reactive Lymphocytes 0
[2021-05-05 13:00] LABS: Band Neutrophils % (manual) 5; Eosinophils % (manual) 4 (0-7); Lymphocytes % (manual) 7 (10.0-50.0); Metamyelocytes % 3; Monocytes % (manual) 1 (0-12); Myelocytes % 1
[2021-05-05] MEDS: ATRACURIUM BESYLATE 1,000 MG in D5W 5% 150 ML IV SCH (13:08)
[2021-05-05] MEDS ORDERED: TPN PER PHARMACY IV NR ×10 (20:00)
[2021-05-06] VITALS (79 sets, daily range): BP systolic 110–158; BP diastolic 31–86
[2021-05-06] MEDS: MIDAZOLAM DRIP 50 mg/50mL 50 ML IV SCH ×5 (00:45→20:22)
[2021-05-06] MEDS: fentaNYL Drip 2500mCg/250mlNS 250 ML IV SCH ×2 (01:41→15:06)
[2021-05-06] MEDS: PROPOFOL 100 ML IV SCH ×5 (04:27→22:29)
[2021-05-06] MEDS: PHENYLEPHRINE IV 250 ML IV SCH ×3 (04:35→21:15)
[2021-05-06 04:47] LABS: Calcium 8.5 mg/dL (8.5-10.1); Magnesium 2.2 mg/dL (1.6-2.6); Potassium 3.6 mmol/L (3.5-5.1)
[2021-05-06 04:50] LABS: BUN/Creatinine Ratio 81.8; Bilirubin, Total 0.4 mg/dL (0.2-1.0); Total Protein 5.9 g/dL (6.4-8.2)
[2021-05-06] MEDS ORDERED: ATRACURIUM BESYLATE (10 MG/ ML) 10 ML VIAL ONE (05:10)
[2021-05-06] MEDS: ATRACURIUM BESYLATE 1,000 MG in D5W 5% 150 ML IV SCH (05:28)
[2021-05-06] MEDS: InsuLIN REG 1unit/0.01ml Soln (100units/ml) SC SCH ×3 (06:00→18:00)
[2021-05-06] MEDS: SUCRALFATE 1 GM/10 ML ORAL SUSP GT SCH ×4 (06:18→22:00)
[2021-05-06] MEDS: ACCU-CHEK COMFORT CURVE STRIP VI SCH ×3 (06:18→17:59)
[2021-05-06] MEDS: MEROPENEM 1GM IVPB 100 ML IV SCH ×3 (06:19→22:51)
[2021-05-06] MEDS: ALBUTEROL SULF 2.5 MG/0.5ML(0.5%) NEB SOLN NEB SCH ×3 (08:35→22:22)
[2021-05-06] MEDS: BUDESONIDE (INHALATION) 0.5 MG/2 ML NEB NEB SCH ×2 (10:00→22:22)
[2021-05-06] MEDS: DexAMETHasone SOD PHOS 10MG/1ML VIAL INJ IV SCH (10:48)
[2021-05-06] MEDS: PANTOPRAZOLE 40 MG/10 ML VIAL INJ IV SCH ×2 (10:49→22:00)
[2021-05-06] MEDS: CHOLECALCIFEROL (VITD3) 2,000 UNIT CAP/TAB PO SCH (10:49)
[2021-05-06] MEDS: SODIUM CHLOR 0.9% PF (SALINE LOCK) 10ML VIAL/SYR IV SCH ×2 (10:49→22:00)
[2021-05-06] MEDS: FUROSEMIDE 20 MG/2 ML VIAL IV SCH (10:49)
[2021-05-06 11:58] LABS: Eosinophils # (auto) 0.9 10 ^3/uL (0-0.8); Monocytes # (auto) 0.3 10 ^3/uL (0-1.3)
[2021-05-06 12:00] LABS: Basophils # (auto) 0.1 10 ^3/uL (0-0.2); Basophils % (auto) 0.6 % (0.0-2.0); Eosinophils % (auto) 6.8 % (0.0-7.0); Hematocrit 25.6 % (36.0-46.0); Hemoglobin 8.3 g/dL (12.2-16.2); Lymphocytes # (auto) 1.1 10 ^3/uL (0.4-5.4); Lymphocytes % (auto) 8.4 % (10.0-50.0); Mean Corpuscular Hgb Conc. 32.2 g/dL (32.0-36.0); Mean Corpuscular Volume 77.5 fL (80.0-100.0); Monocytes % (auto) 2.3 % (0.0-12.0); Neutrophils # (auto) 10.7 10 ^3/uL (1.6-8.6); Neutrophils % (auto) 81.9 % (37.0-80.0); Nucleated Red Blood Cells % 0.3 %; Red Blood Cells 3.31 10^6/uL (4.0-5.20); White Blood Cell 13.1 10^3/uL (4.4-10.8)
[2021-05-06 12:11] LABS: Red Cell Distribution Width 27.7 % (11.8-14.3)
[2021-05-06] MEDS: ENOXAPARIN SOD 40 MG/0.4 ML SYRINGE SC SCH (15:05)
[2021-05-06] MEDS ORDERED: ROCURONIUM 10MG/ML 10ML VIAL IV PRN (18:30)
[2021-05-06] MEDS ORDERED: TPN PER PHARMACY IV NR ×9 (20:00)
[2021-05-06] MEDS: NOREPINEPHRINE 8 MG/250ML KIT 250 ML IV SCH (22:45)
[2021-05-07] VITALS (95 sets, daily range): BP systolic 106–161; BP diastolic 31–76
[2021-05-07] MEDS: fentaNYL Drip 2500mCg/250mlNS 250 ML IV SCH ×3 (00:25→23:46)
[2021-05-07] MEDS: MIDAZOLAM DRIP 50 mg/50mL 50 ML IV SCH ×6 (01:21→22:55)
[2021-05-07] MEDS: PROPOFOL 100 ML IV SCH ×4 (01:24→21:17)
[2021-05-07 04:25] LABS: Basophils # (auto) 0 10 ^3/uL (0-0.2); Basophils % (auto) 0.3 % (0.0-2.0); Hematocrit 23.9 % (36.0-46.0); Lymphocytes # (auto) 0.7 10 ^3/uL (0.4-5.4); Monocytes # (auto) 0.5 10 ^3/uL (0-1.3); White Blood Cell 14.7 10^3/uL (4.4-10.8)
[2021-05-07 04:28] LABS: Eosinophils # (auto) 1.1 10 ^3/uL (0-0.8); Eosinophils % (auto) 7.4 % (0.0-7.0); Hemoglobin 7.6 g/dL (12.2-16.2); Lymphocytes % (auto) 4.9 % (10.0-50.0); Mean Corpuscular Hemoglobin 24.7 pg (28.0-32.0); Mean Corpuscular Hgb Conc. 31.9 g/dL (32.0-36.0); Mean Corpuscular Volume 77.6 fL (80.0-100.0); Monocytes % (auto) 3.3 % (0.0-12.0); Neutrophils # (auto) 12.4 10 ^3/uL (1.6-8.6); Neutrophils % (auto) 84.1 % (37.0-80.0); Nucleated Red Blood Cells % 0.3 %; Red Blood Cells 3.08 10^6/uL (4.0-5.20)
[2021-05-07 04:35] LABS: Albumin 1.7 g/dL (3.4-5.0); Magnesium 2.1 mg/dL (1.6-2.6); Potassium 4.1 mmol/L (3.5-5.1); Red Cell Distribution Width 27.2 % (11.8-14.3)
[2021-05-07 04:38] LABS: Bilirubin, Total 0.5 mg/dL (0.2-1.0); Phosphorus 3.3 mg/dL (2.5-4.90)
[2021-05-07 04:44] LABS: Pre Albumin 20.9 mg/dL (20.0-40.0)
[2021-05-07] MEDS: PHENYLEPHRINE IV 250 ML IV SCH ×3 (05:35→22:13)
[2021-05-07] MEDS: ACCU-CHEK COMFORT CURVE STRIP VI SCH ×4 (06:00→17:57)
[2021-05-07] MEDS: InsuLIN REG 1unit/0.01ml Soln (100units/ml) SC SCH ×4 (06:00→17:57)
[2021-05-07] MEDS: SUCRALFATE 1 GM/10 ML ORAL SUSP GT SCH ×4 (06:00→22:19)
[2021-05-07] MEDS: MEROPENEM 1GM IVPB 100 ML IV SCH ×3 (06:44→22:59)
[2021-05-07] MEDS: BUDESONIDE (INHALATION) 0.5 MG/2 ML NEB NEB SCH ×2 (06:51→18:33)
[2021-05-07] MEDS: ALBUTEROL SULF 2.5 MG/0.5ML(0.5%) NEB SOLN NEB SCH ×3 (06:52→18:32)
[2021-05-07] MEDS: ENOXAPARIN SOD 40 MG/0.4 ML SYRINGE SC SCH (10:00)
[2021-05-07] MEDS: SODIUM CHLOR 0.9% PF (SALINE LOCK) 10ML VIAL/SYR IV SCH ×2 (10:00→22:13)
[2021-05-07] MEDS: PANTOPRAZOLE 40 MG/10 ML VIAL INJ IV SCH ×2 (10:00→22:19)
[2021-05-07] MEDS: FUROSEMIDE 20 MG/2 ML VIAL IV SCH (10:00)
[2021-05-07] MEDS: CHOLECALCIFEROL (VITD3) 2,000 UNIT CAP/TAB PO SCH (10:00)
[2021-05-07 11:32] LABS: Basophils # (auto) 0 10 ^3/uL (0-0.2); Hemoglobin 7.7 g/dL (12.2-16.2); Neutrophils # (auto) 12.5 10 ^3/uL (1.6-8.6); Nucleated Red Blood Cells % 0.2 %; White Blood Cell 15.5 10^3/uL (4.4-10.8)
[2021-05-07 11:46] LABS: Basophils % (auto) 0.2 % (0.0-2.0); Eosinophils # (auto) 1.5 10 ^3/uL (0-0.8); Eosinophils % (auto) 9.4 % (0.0-7.0); Hematocrit 24.6 % (36.0-46.0); Lymphocytes # (auto) 1.1 10 ^3/uL (0.4-5.4); Mean Corpuscular Hemoglobin 24.7 pg (28.0-32.0); Mean Corpuscular Hgb Conc. 31.5 g/dL (32.0-36.0); Mean Corpuscular Volume 78.4 fL (80.0-100.0); Monocytes # (auto) 0.4 10 ^3/uL (0-1.3); Monocytes % (auto) 2.8 % (0.0-12.0); Neutrophils % (auto) 80.6 % (37.0-80.0); Red Blood Cells 3.14 10^6/uL (4.0-5.20)
[2021-05-07 11:48] LABS: BUN/Creatinine Ratio 117.6; Calcium 8.6 mg/dL (8.5-10.1); Potassium 3.4 mmol/L (3.5-5.1)
[2021-05-07 11:51] LABS: Red Cell Distribution Width 27.5 % (11.8-14.3)
[2021-05-07] MEDS: ATRACURIUM BESYLATE 1,000 MG in D5W 5% 150 ML IV SCH (12:30)
[2021-05-07] MEDS ORDERED: TPN PER PHARMACY IV NR ×9 (20:00)
[2021-05-07] MEDS: NOREPINEPHRINE 8 MG/250ML KIT 250 ML IV SCH (22:20)
[2021-05-08] VITALS (86 sets, daily range): BP systolic 117–155; BP diastolic 46–93
[2021-05-08] MEDS: ACCU-CHEK COMFORT CURVE STRIP VI SCH ×4 (00:08→17:36)
[2021-05-08] MEDS: PROPOFOL 100 ML IV SCH ×7 (01:24→23:26)
[2021-05-08 04:33] LABS: Calcium 8.2 mg/dL (8.5-10.1); Potassium 4.1 mmol/L (3.5-5.1)
[2021-05-08 04:36] LABS: Albumin 1.7 g/dL (3.4-5.0); BUN/Creatinine Ratio 137.5; Magnesium 2.2 mg/dL (1.6-2.6)
[2021-05-08 04:39] LABS: Bilirubin, Total 0.8 mg/dL (0.2-1.0); Phosphorus 4.1 mg/dL (2.5-4.90); Total Protein 6.3 g/dL (6.4-8.2)
[2021-05-08] MEDS: BUDESONIDE (INHALATION) 0.5 MG/2 ML NEB NEB SCH ×2 (05:53→21:52)
[2021-05-08] MEDS: ALBUTEROL SULF 2.5 MG/0.5ML(0.5%) NEB SOLN NEB SCH ×3 (05:53→21:52)
[2021-05-08] MEDS: InsuLIN REG 1unit/0.01ml Soln (100units/ml) SC SCH ×4 (06:00→18:00)
[2021-05-08] MEDS: SUCRALFATE 1 GM/10 ML ORAL SUSP GT SCH ×4 (06:12→22:00)
[2021-05-08] MEDS: PHENYLEPHRINE IV 250 ML IV SCH (06:13)
[2021-05-08] MEDS: MEROPENEM 1GM IVPB 100 ML IV SCH ×3 (06:31→23:22)
[2021-05-08 07:41] LABS: Monocytes # (auto) 0.5 10 ^3/uL (0-1.3); Monocytes % (auto) 3.5 % (0.0-12.0)
[2021-05-08 07:44] LABS: Basophils # (auto) 0 10 ^3/uL (0-0.2); Basophils % (auto) 0.1 % (0.0-2.0); Eosinophils # (auto) 1.2 10 ^3/uL (0-0.8); Eosinophils % (auto) 8.3 % (0.0-7.0); Hematocrit 26.3 % (36.0-46.0); Lymphocytes # (auto) 0.6 10 ^3/uL (0.4-5.4); Lymphocytes % (auto) 4.5 % (10.0-50.0); Mean Corpuscular Hemoglobin 24.1 pg (28.0-32.0); Mean Corpuscular Hgb Conc. 30.6 g/dL (32.0-36.0); Mean Corpuscular Volume 78.9 fL (80.0-100.0); Neutrophils # (auto) 11.8 10 ^3/uL (1.6-8.6); Neutrophils % (auto) 83.6 % (37.0-80.0); Nucleated Red Blood Cells % 0.3 %; Red Blood Cells 3.33 10^6/uL (4.0-5.20); Red Cell Distribution Width 26.9 % (11.8-14.3); White Blood Cell 14.1 10^3/uL (4.4-10.8)
[2021-05-08] MEDS: CHOLECALCIFEROL (VITD3) 2,000 UNIT CAP/TAB PO SCH (08:03)
[2021-05-08] MEDS: FUROSEMIDE 20 MG/2 ML VIAL IV SCH (08:04)
[2021-05-08] MEDS: MIDAZOLAM DRIP 50 mg/50mL 50 ML IV SCH ×6 (08:04→22:10)
[2021-05-08] MEDS: PANTOPRAZOLE 40 MG/10 ML VIAL INJ IV SCH (08:04)
[2021-05-08] MEDS: SODIUM CHLOR 0.9% PF (SALINE LOCK) 10ML VIAL/SYR IV SCH ×2 (08:05→22:00)
[2021-05-08] MEDS: ENOXAPARIN SOD 40 MG/0.4 ML SYRINGE SC SCH (10:00)
[2021-05-08] MEDS: ATRACURIUM BESYLATE 1,000 MG in D5W 5% 150 ML IV SCH (10:38)
[2021-05-08] MEDS: fentaNYL Drip 2500mCg/250mlNS 250 ML IV SCH (12:07)
[2021-05-08] MEDS: Jevity 1.2 Cal/Fiber 1 Liter GT SCH (15:21)
[2021-05-08] MEDS ORDERED: TPN PER PHARMACY IV NR ×9 (20:00)
[2021-05-09] VITALS (85 sets, daily range): BP systolic 105–170; BP diastolic 47–75
[2021-05-09] MEDS: fentaNYL Drip 2500mCg/250mlNS 250 ML IV SCH ×3 (00:09→22:26)
[2021-05-09] MEDS: MIDAZOLAM DRIP 50 mg/50mL 50 ML IV SCH ×3 (02:01→16:41)
[2021-05-09] MEDS: PROPOFOL 100 ML IV SCH ×4 (02:39→22:23)
[2021-05-09 04:51] LABS: Basophils # (auto) 0 10 ^3/uL (0-0.2); Hemoglobin 7.7 g/dL (12.2-16.2); Lymphocytes # (auto) 0.6 10 ^3/uL (0.4-5.4); Monocytes # (auto) 0.5 10 ^3/uL (0-1.3)
[2021-05-09 04:55] LABS: Eosinophils # (auto) 1.4 10 ^3/uL (0-0.8); Eosinophils % (auto) 9.2 % (0.0-7.0); Lymphocytes % (auto) 4.3 % (10.0-50.0); Mean Corpuscular Hemoglobin 24.9 pg (28.0-32.0); Mean Corpuscular Hgb Conc. 32.2 g/dL (32.0-36.0); Mean Corpuscular Volume 77.6 fL (80.0-100.0); Monocytes % (auto) 3.4 % (0.0-12.0); Neutrophils # (auto) 12.5 10 ^3/uL (1.6-8.6); Neutrophils % (auto) 83.1 % (37.0-80.0); Nucleated Red Blood Cells % 0.2 %; White Blood Cell 15.1 10^3/uL (4.4-10.8)
[2021-05-09 05:04] LABS: Red Cell Distribution Width 26.6 % (11.8-14.3)
[2021-05-09 05:33] LABS: Chloride 99 mmol/L (98-107); Potassium 3.6 mmol/L (3.5-5.1); Sodium 138 mmol/L (136-145)
[2021-05-09 05:37] LABS: Albumin 1.4 g/dL (3.4-5.0); Anion Gap 3 (5-15); BUN/Creatinine Ratio 113.3; Blood Urea Nitrogen 17 mg/dL (7-18); Calcium 8.2 mg/dL (8.5-10.1); Carbon Dioxide 36 mmol/L (21-32); GFR African American 689 mL/min; GFR Non-African American 569 mL/min; Glucose 106 mg/dL (74-106); Magnesium 2.1 mg/dL (1.6-2.6)
[2021-05-09 05:52] LABS: Alanine Aminotransferase 47 U/L (13-56); Alkaline Phosphatase 156 U/L (45-117); Aspartate Aminotransferase 24 U/L (15-37); Bilirubin, Total 0.9 mg/dL (0.2-1.0); Phosphorus 2.7 mg/dL (2.5-4.90); Total Protein 5.9 g/dL (6.4-8.2)
[2021-05-09] MEDS: SUCRALFATE 1 GM/10 ML ORAL SUSP GT SCH ×4 (05:52→22:22)
[2021-05-09] MEDS: InsuLIN REG 1unit/0.01ml Soln (100units/ml) SC SCH ×2 (05:53)
[2021-05-09] MEDS: ACCU-CHEK COMFORT CURVE STRIP VI SCH ×2 (05:53)
[2021-05-09] MEDS: MEROPENEM 1GM IVPB 100 ML IV SCH ×3 (06:41→23:46)
[2021-05-09] MEDS: ALBUTEROL SULF 2.5 MG/0.5ML(0.5%) NEB SOLN NEB SCH ×2 (06:42→13:53)
[2021-05-09] MEDS: BUDESONIDE (INHALATION) 0.5 MG/2 ML NEB NEB SCH (06:42)
[2021-05-09] MEDS: ENOXAPARIN SOD 40 MG/0.4 ML SYRINGE SC SCH (07:43)
[2021-05-09] MEDS: FUROSEMIDE 20 MG/2 ML VIAL IV SCH ×2 (08:08→12:46)
[2021-05-09] MEDS: CHOLECALCIFEROL (VITD3) 2,000 UNIT CAP/TAB PO SCH (08:08)
[2021-05-09] MEDS: PANTOPRAZOLE 40 MG/10 ML VIAL INJ IV SCH ×2 (08:09→11:19)
[2021-05-09] MEDS: SODIUM CHLOR 0.9% PF (SALINE LOCK) 10ML VIAL/SYR IV SCH ×2 (08:09→22:22)
[2021-05-09] MEDS ORDERED: acetaZOLAMIDE SODIUM 500 MG VL IV ONE (10:45)
[2021-05-09] MEDS ORDERED: SODIUM FERR GLUC 62.5MG/5ML 125 MG in SODIUM CHL 0.9% 100 ML IV ONE (12:30)
[2021-05-09] MEDS: Jevity 1.2 Cal/Fiber 1 Liter GT SCH (16:41)
[2021-05-10] VITALS (90 sets, daily range): BP systolic 96–159; BP diastolic 43–79
[2021-05-10] MEDS: PROPOFOL 100 ML IV SCH ×5 (02:49→22:31)
[2021-05-10] MEDS: MIDAZOLAM DRIP 50 mg/50mL 50 ML IV SCH ×5 (03:45→21:40)
[2021-05-10 04:34] LABS: Basophils # (auto) 0 10 ^3/uL (0-0.2); Eosinophils # (auto) 1.2 10 ^3/uL (0-0.8); Hemoglobin 7.5 g/dL (12.2-16.2); Lymphocytes # (auto) 0.6 10 ^3/uL (0.4-5.4); Mean Corpuscular Hemoglobin 24.5 pg (28.0-32.0)
[2021-05-10 04:35] LABS: Basophils % (auto) 0.2 % (0.0-2.0); Eosinophils % (auto) 9.3 % (0.0-7.0); Hematocrit 23.6 % (36.0-46.0); Lymphocytes % (auto) 4.6 % (10.0-50.0); Mean Corpuscular Hgb Conc. 31.6 g/dL (32.0-36.0); Mean Corpuscular Volume 77.5 fL (80.0-100.0); Monocytes # (auto) 0.4 10 ^3/uL (0-1.3); Monocytes % (auto) 3.1 % (0.0-12.0); Neutrophils # (auto) 10.8 10 ^3/uL (1.6-8.6); Neutrophils % (auto) 82.8 % (37.0-80.0); Nucleated Red Blood Cells % 0.3 %; Red Blood Cells 3.05 10^6/uL (4.0-5.20); White Blood Cell 13.1 10^3/uL (4.4-10.8)
[2021-05-10 04:46] LABS: Red Cell Distribution Width 26.4 % (11.8-14.3)
[2021-05-10 04:51] LABS: Albumin 1.3 g/dL (3.4-5.0); Calcium 8.6 mg/dL (8.5-10.1); Potassium 3.6 mmol/L (3.5-5.1)
[2021-05-10 04:54] LABS: BUN/Creatinine Ratio 72.7
[2021-05-10 04:56] LABS: Bilirubin, Total 1.1 mg/dL (0.2-1.0); Total Protein 5.9 g/dL (6.4-8.2)
[2021-05-10] MEDS: ALBUTEROL SULF 2.5 MG/0.5ML(0.5%) NEB SOLN NEB SCH ×3 (05:57→22:21)
[2021-05-10] MEDS: BUDESONIDE (INHALATION) 0.5 MG/2 ML NEB NEB SCH ×2 (05:57→22:21)
[2021-05-10] MEDS: MEROPENEM 1GM IVPB 100 ML IV SCH ×2 (06:32→15:35)
[2021-05-10] MEDS: SUCRALFATE 1 GM/10 ML ORAL SUSP GT SCH ×4 (06:32→21:39)
[2021-05-10] MEDS: PANTOPRAZOLE 40 MG/10 ML VIAL INJ IV SCH (08:32)
[2021-05-10] MEDS: CHOLECALCIFEROL (VITD3) 2,000 UNIT CAP/TAB PO SCH (08:32)
[2021-05-10] MEDS: FUROSEMIDE 20 MG/2 ML VIAL IV SCH (08:32)
[2021-05-10] MEDS: SODIUM CHLOR 0.9% PF (SALINE LOCK) 10ML VIAL/SYR IV SCH ×2 (08:34→21:39)
[2021-05-10] MEDS: fentaNYL Drip 2500mCg/250mlNS 250 ML IV SCH ×2 (08:35→22:32)
[2021-05-10] MEDS: ENOXAPARIN SOD 40 MG/0.4 ML SYRINGE SC SCH (08:35)
[2021-05-10] MEDS ORDERED: FUROSEMIDE 20 MG/2 ML VIAL IV ONE (12:00)
[2021-05-10] MEDS: SODIUM FERR GLUC 62.5MG/5ML 125 MG in SODIUM CHL 0.9% 100 ML IV SCH ×2 (12:41→15:35)
[2021-05-10] MEDS: Jevity 1.2 Cal/Fiber 1 Liter GT SCH (12:41)
[2021-05-11] VITALS (87 sets, daily range): BP systolic 108–155; BP diastolic 51–75
[2021-05-11] MEDS: MIDAZOLAM DRIP 50 mg/50mL 50 ML IV SCH (02:03)
[2021-05-11 04:49] LABS: Calcium 8.7 mg/dL (8.5-10.1); Potassium 3.5 mmol/L (3.5-5.1)
[2021-05-11 04:56] LABS: BUN/Creatinine Ratio 68.8
[2021-05-11] MEDS: BUDESONIDE (INHALATION) 0.5 MG/2 ML NEB NEB SCH ×2 (06:45→22:41)
[2021-05-11] MEDS: ALBUTEROL SULF 2.5 MG/0.5ML(0.5%) NEB SOLN NEB SCH ×3 (06:45→22:40)
[2021-05-11] MEDS: SUCRALFATE 1 GM/10 ML ORAL SUSP GT SCH ×4 (06:48→22:36)
[2021-05-11 09:39] LABS: Hematocrit 24.7 % (36.0-46.0); White Blood Cell 11.7 10^3/uL (4.4-10.8)
[2021-05-11 09:41] LABS: Hemoglobin 7.6 g/dL (12.2-16.2); Mean Corpuscular Hemoglobin 24.1 pg (28.0-32.0); Mean Corpuscular Hgb Conc. 30.7 g/dL (32.0-36.0); Mean Corpuscular Volume 78.6 fL (80.0-100.0); Red Blood Cells 3.14 10^6/uL (4.0-5.20)
[2021-05-11 09:47] LABS: Basophils % (manual) 0 (0.0-2.0); Blast Cells 0; Promyelocytes % 0; Reactive Lymphocytes 0
[2021-05-11] MEDS: SODIUM CHLOR 0.9% PF (SALINE LOCK) 10ML VIAL/SYR IV SCH ×2 (10:00→22:21)
[2021-05-11] MEDS: FUROSEMIDE 20 MG/2 ML VIAL IV SCH (10:00)
[2021-05-11] MEDS ORDERED: ENOXAPARIN SOD 40 MG/0.4 ML SYRINGE SC SCH (10:00)
[2021-05-11] MEDS: PANTOPRAZOLE 40 MG/10 ML VIAL INJ IV SCH (10:00)
[2021-05-11] MEDS: CHOLECALCIFEROL (VITD3) 2,000 UNIT CAP/TAB PO SCH (10:00)
[2021-05-11 10:41] LABS: Band Neutrophils % (manual) 2; Eosinophils % (manual) 9 (0-7); Lymphocytes % (manual) 7 (10.0-50.0); Metamyelocytes % 1; Monocytes % (manual) 4 (0-12); Myelocytes % 2
[2021-05-11] MEDS: PROPOFOL 100 ML IV SCH (22:45)
[2021-05-11] MEDS: fentaNYL Drip 2500mCg/250mlNS 250 ML IV SCH (23:25)
[2021-05-12] VITALS (98 sets, daily range): BP systolic 87–168; BP diastolic 36–80
[2021-05-12 04:31] LABS: Hemoglobin 7.5 g/dL (12.2-16.2)
[2021-05-12 04:34] LABS: Hematocrit 23.2 % (36.0-46.0); Mean Corpuscular Hemoglobin 24.9 pg (28.0-32.0); Mean Corpuscular Hgb Conc. 32.1 g/dL (32.0-36.0); Mean Corpuscular Volume 77.5 fL (80.0-100.0); Red Blood Cells 2.99 10^6/uL (4.0-5.20); White Blood Cell 13.1 10^3/uL (4.4-10.8)
[2021-05-12 04:42] LABS: Basophils % (manual) 0 (0.0-2.0); Blast Cells 0; Myelocytes % 0; Promyelocytes % 0; Reactive Lymphocytes 0
[2021-05-12 04:45] LABS: Potassium 3.8 mmol/L (3.5-5.1)
[2021-05-12 04:50] LABS: BUN/Creatinine Ratio 54.2; Calcium 8.7 mg/dL (8.5-10.1)
[2021-05-12] MEDS: SUCRALFATE 1 GM/10 ML ORAL SUSP GT SCH ×4 (06:00→22:01)
[2021-05-12] MEDS: BUDESONIDE (INHALATION) 0.5 MG/2 ML NEB NEB SCH ×2 (06:25→22:10)
[2021-05-12] MEDS: ALBUTEROL SULF 2.5 MG/0.5ML(0.5%) NEB SOLN NEB SCH ×3 (06:25→22:10)
[2021-05-12 07:47] LABS: Band Neutrophils % (manual) 9; Eosinophils % (manual) 7 (0-7); Lymphocytes % (manual) 10 (10.0-50.0); Metamyelocytes % 2; Monocytes % (manual) 2 (0-12)
[2021-05-12] MEDS: PROPOFOL 100 ML IV SCH ×4 (08:05→17:45)
[2021-05-12] MEDS: MIDAZOLAM DRIP 50 mg/50mL 50 ML IV SCH ×3 (08:30→12:43)
[2021-05-12] MEDS: PANTOPRAZOLE 40 MG/10 ML VIAL INJ IV SCH (10:05)
[2021-05-12] MEDS: SODIUM CHLOR 0.9% PF (SALINE LOCK) 10ML VIAL/SYR IV SCH ×2 (10:05→22:01)
[2021-05-12] MEDS: CHOLECALCIFEROL (VITD3) 2,000 UNIT CAP/TAB PO SCH (10:05)
[2021-05-12] MEDS: FUROSEMIDE 20 MG/2 ML VIAL IV SCH (10:05)
[2021-05-12] MEDS ORDERED: ENOXAPARIN SOD 120 MG/0.8 ML SYRINGE SC ONE (11:15)
[2021-05-12] MEDS: SODIUM FERR GLUC 62.5MG/5ML 125 MG in SODIUM CHL 0.9% 100 ML IV SCH (12:31)
[2021-05-12] MEDS: ROCURONIUM BROMIDE 1,000 MG in D5W 5% 150 ML IV SCH (12:31)
[2021-05-12] MEDS: NOREPINEPHRINE 8 MG/250ML KIT 250 ML IV SCH (16:02)
[2021-05-12] MEDS: fentaNYL Drip 2500mCg/250mlNS 250 ML IV SCH (17:47)
[2021-05-13] VITALS (98 sets, daily range): BP systolic 73–121; BP diastolic 32–60
[2021-05-13] MEDS: ROCURONIUM BROMIDE 1,000 MG in D5W 5% 150 ML IV SCH ×2 (01:26→15:57)
[2021-05-13] MEDS: fentaNYL Drip 2500mCg/250mlNS 250 ML IV SCH ×3 (01:27→18:21)
[2021-05-13 05:03] LABS: Hemoglobin 7.8 g/dL (12.2-16.2)
[2021-05-13 05:05] LABS: Hematocrit 25.4 % (36.0-46.0); Mean Corpuscular Hemoglobin 24.3 pg (28.0-32.0); Mean Corpuscular Hgb Conc. 30.6 g/dL (32.0-36.0); Mean Corpuscular Volume 79.3 fL (80.0-100.0); White Blood Cell 22.9 10^3/uL (4.4-10.8)
[2021-05-13 05:17] LABS: Basophils % (manual) 0 (0.0-2.0); Blast Cells 0; Metamyelocytes % 0; Promyelocytes % 0; Reactive Lymphocytes 0; Red Cell Distribution Width 26.8 % (11.8-14.3)
[2021-05-13 05:19] LABS: BUN/Creatinine Ratio 42.2; Calcium 8.6 mg/dL (8.5-10.1); Potassium 3.6 mmol/L (3.5-5.1)
[2021-05-13] MEDS: ALBUTEROL SULF 2.5 MG/0.5ML(0.5%) NEB SOLN NEB SCH ×3 (06:15→22:19)
[2021-05-13] MEDS: BUDESONIDE (INHALATION) 0.5 MG/2 ML NEB NEB SCH ×2 (06:15→22:19)
[2021-05-13] MEDS: SUCRALFATE 1 GM/10 ML ORAL SUSP GT SCH ×4 (06:24→21:39)
[2021-05-13 06:49] LABS: Band Neutrophils % (manual) 54; Eosinophils % (manual) 6 (0-7); Lymphocytes % (manual) 2 (10.0-50.0); Monocytes % (manual) 7 (0-12); Myelocytes % 8
[2021-05-13] MEDS ORDERED: ENOXAPARIN SOD 40 MG/0.4 ML SYRINGE SC SCH (10:00)
[2021-05-13] MEDS: SODIUM CHLOR 0.9% PF (SALINE LOCK) 10ML VIAL/SYR IV SCH ×2 (11:07→21:41)
[2021-05-13] MEDS: PANTOPRAZOLE 40 MG/10 ML VIAL INJ IV SCH (11:07)
[2021-05-13] MEDS: FUROSEMIDE 20 MG/2 ML VIAL IV SCH (11:07)
[2021-05-13] MEDS: CHOLECALCIFEROL (VITD3) 2,000 UNIT CAP/TAB PO SCH (11:07)
[2021-05-13] MEDS: NOREPINEPHRINE 8 MG/250ML KIT 250 ML IV SCH ×2 (11:08→21:40)
[2021-05-13] MEDS: MIDAZOLAM DRIP 50 mg/50mL 50 ML IV SCH ×3 (11:08→22:08)
[2021-05-13] MEDS: PROPOFOL 100 ML IV SCH ×4 (11:09→21:41)
[2021-05-13] MEDS: SODIUM FERR GLUC 62.5MG/5ML 125 MG in SODIUM CHL 0.9% 100 ML IV SCH (12:51)
[2021-05-13] MEDS: VASOPRESSIN 50 UNITS in D5W 5% 247.5 ML IV SCH (15:56)
[2021-05-13] MEDS: PHENYLEPHRINE IV 250 ML IV SCH (17:24)
[2021-05-14] VITALS (26 sets, daily range): BP systolic 0–182; BP diastolic 0–98
[2021-05-14] MEDS: PHENYLEPHRINE IV 250 ML IV SCH ×2 (00:53→08:55)
[2021-05-14] MEDS: PROPOFOL 100 ML IV SCH ×2 (00:53→03:19)
[2021-05-14] MEDS: fentaNYL Drip 2500mCg/250mlNS 250 ML IV SCH (01:49)
[2021-05-14] MEDS ORDERED: EPINEPHrine HCL 250 ML IV SCH (02:00)
[2021-05-14] MEDS: NOREPINEPHRINE 8 MG/250ML KIT 250 ML IV SCH ×2 (02:15→10:38)
[2021-05-14] MEDS: VASOPRESSIN 50 UNITS in D5W 5% 247.5 ML IV SCH (02:15)
[2021-05-14] MEDS: MIDAZOLAM DRIP 50 mg/50mL 50 ML IV SCH (02:16)
[2021-05-14] MEDS: DOPamine 1600MCG/ML D5W 250 ML IV SCH ×2 (03:25→08:55)
[2021-05-14 04:54] LABS: Hematocrit 28.5 % (36.0-46.0); Hemoglobin 8.4 g/dL (12.2-16.2); Mean Corpuscular Hemoglobin 24.5 pg (28.0-32.0); Mean Corpuscular Hgb Conc. 29.3 g/dL (32.0-36.0); Mean Corpuscular Volume 83.6 fL (80.0-100.0); Red Blood Cells 3.41 10^6/uL (4.0-5.20); Red Cell Distribution Width 26.5 % (11.8-14.3); White Blood Cell 34.5 10^3/uL (4.4-10.8)
[2021-05-14 04:55] LABS: Basophils % (manual) 0 (0.0-2.0); Blast Cells 0; Metamyelocytes % 0; Myelocytes % 0; Promyelocytes % 0; Reactive Lymphocytes 0
[2021-05-14 05:03] LABS: Calcium 7.8 mg/dL (8.5-10.1); Potassium 5.5 mmol/L (3.5-5.1)
[2021-05-14 05:05] LABS: BUN/Creatinine Ratio 18.3
[2021-05-14] MEDS ORDERED: SODIUM BICARBONATE 8.4 % INJ 50ML VIAL IV ONE (05:15)
[2021-05-14] MEDS ORDERED: SODIUM BICARBONATE 8.4% INJ 50ML SYRINGE ONE (05:18)
[2021-05-14] MEDS: SUCRALFATE 1 GM/10 ML ORAL SUSP GT SCH (06:00)
[2021-05-14] MEDS ORDERED: PHENYLEPHRINE HCL 10 MG/ML VL ONE (06:08)
[2021-05-14] MEDS: ALBUTEROL SULF 2.5 MG/0.5ML(0.5%) NEB SOLN NEB SCH (06:49)
[2021-05-14] MEDS: BUDESONIDE (INHALATION) 0.5 MG/2 ML NEB NEB SCH (06:51)
[2021-05-14 10:31] LABS: Band Neutrophils % (manual) 41; Eosinophils % (manual) 4 (0-7); Lymphocytes % (manual) 10 (10.0-50.0); Monocytes % (manual) 4 (0-12)
[2021-05-14] MEDS ORDERED: MORPHINE SULFATE INJECTION 2 MG/ML SYRG IV PRN (13:15)
[2021-05-14] MEDS ORDERED: LORazepam MDV 2MG/ML 50 MG in SODIUM CHL 0.9% 25 ML IV SCH (13:15)
[2021-05-14] MEDS ORDERED: LORazepam 2MG/ML-1ML VIAL IV PRN (13:30)
== END 2021-05-14 16:00 | DRG 870 ==
LOC: ER 14:09 → EDBD 14:09 → UNDOADMIN 19:13 → TELE 19:13 → ICU WEST 04-18 21:07
PROVIDERS: ADMIT Nurse Practitioner Acute Care; ATTEND Internal Medicine Pulmonary Disease
PROC: XW033E5 Introduction of Remdesivir Anti-infective into Peripheral Vein, Percutaneous Approach, New Technology Group 5 (ICD-10-PCS; 2021-04-13)
PROC: XW033H5 Introduction of Tocilizumab into Peripheral Vein, Percutaneous Approach, New Technology Group 5 (ICD-10-PCS; 2021-04-13)
PROC: 05HD33Z Insertion of Infusion Device into Right Cephalic Vein, Percutaneous Approach (ICD-10-PCS; 2021-04-15)
PROC: B54MZZA Ultrasonography of Right Upper Extremity Veins, Guidance (ICD-10-PCS; 2021-04-15)
PROC: 5A1955Z Respiratory Ventilation, Greater than 96 Consecutive Hours (ICD-10-PCS; 2021-04-18)
PROC: 0BH17EZ Insertion of Endotracheal Airway into Trachea, Via Natural or Artificial Opening (ICD-10-PCS; 2021-04-18)
PROC: 05HY33Z Insertion of Infusion Device into Upper Vein, Percutaneous Approach (ICD-10-PCS; 2021-04-18)
PROC: B544ZZA Ultrasonography of Left Jugular Veins, Guidance (ICD-10-PCS; 2021-04-18)
PROC: 05HF33Z Insertion of Infusion Device into Left Cephalic Vein, Percutaneous Approach (ICD-10-PCS; principal; 2021-04-28)
PROC: B54NZZA Ultrasonography of Left Upper Extremity Veins, Guidance (ICD-10-PCS; 2021-04-28)
PROC: 02HV33Z Insertion of Infusion Device into Superior Vena Cava, Percutaneous Approach (ICD-10-PCS; 2021-04-30)
DX: A41.89 Other specified sepsis (principal); J12.82 Pneumonia due to coronavirus disease 2019; J15.1 Pneumonia due to Pseudomonas; J96.01 Acute respiratory failure with hypoxia; R65.21 Severe sepsis with septic shock; U07.1 COVID-19; J96.02 Acute respiratory failure with hypercapnia; D68.59 Other primary thrombophilia; J98.11 Atelectasis; Z68.41 Body mass index [BMI] 40.0-44.9, adult; Z51.5 Encounter for palliative care; D89.839 Cytokine release syndrome, grade unspecified; E66.01 Morbid (severe) obesity due to excess calories; J98.2 Interstitial emphysema; D50.9 Iron deficiency anemia, unspecified; R73.9 Hyperglycemia, unspecified; Z83.3 Family history of diabetes mellitus; Z82.49 Family history of ischemic heart disease and other diseases of the circulatory system; Z87.11 Personal history of peptic ulcer disease
CPT/HCPCS: 36415; 36569; 36600; 71045; 80048; 80053; 80076; 81001; 82040; 82270; 82728; 82805; 82962; 83036; 83540; 83550; 83605; 83615; 83735; 83880; 84100; 84132; 84439; 84443; 84478; 84484; 84702; 85007; 85025; 85027; 85379; 85610; 85730; 86141; 87040; 87070; 87077; 87081; 87086; 87088; 87186; 87205; 87426; 87493; 93005; 93306; 93970; 94003; 94640; 96365; 96366; 96375; C9113; G0378; J0171; J0696; J1100; J1450; J1956; J2185; J2250; J2405; J2543; J2704; J7060; J7131